=== PATIENT | female | born 1980 | race Hispanic/Latino ===

== ENCOUNTER 2019-12-28 23:25 | Emergency (ER) | payer SELFPAY ==
[~2019-12-28] VITALS: Ht 167.6 cm; Wt 73.9 kg
[2019-12-28 23:44] LABS: BASOPHILS % 0.5 % (0.0-1.0); EOSINOPHILS # (AUTO) 0.1 (0.0-0.4); EOSINOPHILS % 1.1 % (0.0-6.0); HEMATOCRIT 40.3 % (34.2-44.1); HEMOGLOBIN 13.2 g/dL (12.0-16.0); LYMPHOCYTES # (AUTO) 2.4 (1.0-3.2); LYMPHOCYTES % 37.1 % (18.0-39.1); MEAN CORPUSCULAR HEMOGLOBIN 29.1 pg (28-32); MEAN CORPUSCULAR HGB CONC 32.8 g/dL (31-35); MEAN CORPUSCULAR VOLUME 88.8 fL (81-99); MONOCYTES # (AUTO) 0.5 (0.2-0.8); MONOCYTES % 7.7 % (4.4-11.3); NEUTROPHILS # (AUTO) 3.4 (2.1-6.9); NEUTROPHILS % 53.4 % (38.7-80.0); PLATELET COUNT 163 x10e3/uL (140-360); RED BLOOD COUNT 4.54 x10e6/uL (3.6-5.1); RED CELL DISTRIBUTION WIDTH 14.1 % (11.7-14.4)
--- NOTE | 2019-12-28 23:44 | Emergency Department Note ---
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 Executive Required: No Onset (how long ago): week(s) (2) Location: SKIN Quality: BRUISING, PETICHIAE Radiation: Reports non-radiation Severity: mild Onset quality: gradual Duration (how long): week(s) (2) Timing of current episode: constant Progression: unchanged Chronicity: recurrent Context: Denies recent illness, Denies recent surgery, Denies trauma/injury Relieving factors: none Exacerbating factors: none Associated symptoms: Reports other (HAD A HEADACHE BUT NO HEADACHE AT THIS TIME) Treatments prior to arrival: none Past Medical/Family History Physician Review I have reviewed the patient's past medical and family history. Any updates have been documented here. Past Medical History Recent Fever: No Clinical Suspicion of Infectio: No New/Unexplained Change in Ment: No Past Medical History: Hypertension, Hypothyroidism, Anxiety Other Medical History: bulging disks stress test 2017- negative a year ago GESTATIONAL THROMBOCYTOPENIA B12 DEFICIENCY Other Surgery: D&C RT FOOT SX Social History Smoking Cessation: Never Smoker Alcohol Use: None Any Illegal Drug Use: No Family History Family history of heart diseas: No Other Last Tetanus: unk Review of Systems Review of Systems Constitutional: Reports no symptoms EENTM: Reports no symptoms Cardiovascular: Reports no symptoms Respiratory: Reports no symptoms Gastrointestinal: Reports no symptoms Genitourinary: Reports no symptoms Musculoskeletal: Reports no symptoms Integumentary: Reports as per HPI Neurological: Reports no symptoms Psychological: Reports no symptoms Endocrine: Reports no symptoms Hematological/Lymphatic: Reports no symptoms Physical Exam Related Data Allergies: Coded Allergies: amlodipine (Verified Allergy, Intermediate, HIVES/RASH, 12/28/19) Triage Vital Signs Vital Signs Date Time Temp Pulse Resp B/P (MAP) Pulse Ox O2 Delivery O2 Flow Rate FiO2 12/28/19 23:31 98.5 69 18 143/90 100 Room Air Vital signs reviewed: Yes Physical Exam CONSTITUTIONAL Constitutional: Present well-developed, Present well-nourished; Absent distressed HENT HENT: Present normocephalic, Present atraumatic, Present oropharynx clear/moist, Present nose normal HENT L/R: Present left ext ear normal, Present right ext ear normal EYES Eyes: Reports PERRL, Reports conjunctivae normal NECK Neck: Present ROM normal PULMONARY Pulmonary: Present effort normal, Present breath sounds normal CARDIOVASCULAR Cardiovascular: Present regular rhythm, Present heart sounds normal, Present capillary refill normal, Present normal rate GASTROINTESTINAL Abdominal: Present soft, Present nontender, Present bowel sounds normal GENITOURINARY Genitourinary: Present exam deferred SKIN PT HAS A BRUISE TO RIGHT FOREARM, A BRUISE TO THIGH, A FEW SPARSE TINY RED SPOTS THAT MAY BE PETECHIAE. MUSCULOSKELETAL Musculoskeletal: Present ROM normal NEUROLOGICAL Neurological: Present alert, Present oriented x 3, Present no gross motor or sensory deficits PSYCHOLOGICAL Psychological: Present mood/affect normal, Present judgement normal Results Laboratory Laboratory Laboratory Tests Test 12/28/19 23:37 12/28/19 23:35 White Blood Count 6.34 x10e3/uL (4.8-10.8) Red Blood Count 4.54 x10e6/uL (3.6-5.1) Hemoglobin 13.2 g/dL (12.0-16.0) Hematocrit 40.3 % (34.2-44.1) Mean Corpuscular Volume 88.8 fL (81-99) Mean Corpuscular Hemoglobin 29.1 pg (28-32) Mean Corpuscular Hemoglobin Concent 32.8 g/dL (31-35) Red Cell Distribution Width 14.1 % (11.7-14.4) Platelet Count 163 x10e3/uL (140-360) Neutrophils (%) (Auto) 53.4 % (38.7-80.0) Lymphocytes (%) (Auto) 37.1 % (18.0-39.1) Monocytes (%) (Auto) 7.7 % (4.4-11.3) Eosinophils (%) (Auto) 1.1 % (0.0-6.0) Basophils (%) (Auto) 0.5 % (0.0-1.0) Neutrophils # (Auto) 3.4 (2.1-6.9) Lymphocytes # (Auto) 2.4 (1.0-3.2) Monocytes # (Auto) 0.5 (0.2-0.8) Eosinophils # (Auto) 0.1 (0.0-0.4) Basophils # (Auto) 0.0 (0.0-0.1) Absolute Immature Granulocyte (auto 0.01 x10e3/uL (0-0.1) Sodium Level 141 mmol/L (136-145) Potassium Level 3.5 mmol/L (3.5-5.1) Chloride Level 106 mmol/L (98-107) Carbon Dioxide Level 25 mmol/L (22-29) Anion Gap 13.5 mmol/L (8-16) Blood Urea Nitrogen 11 mg/dL (7-26) Creatinine 0.69 mg/dL (0.57-1.11) Estimat Glomerular Filtration Rate > 60 ML/MIN (60-) BUN/Creatinine Ratio 16 (6-25) Glucose Level 86 mg/dL (74-118) Calcium Level 9.3 mg/dL (8.4-10.2) Urine Color Yellow (YELLOW) Urine Clarity Clear (CLEAR) Urine pH 6 (5 - 7) Urine Specific [place] >=1.030 (1.010-1.025) Urine Protein Negative (NEGATIVE) Urine Glucose (UA) Negative (NEGATIVE) Urine Ketones Negative (NEGATIVE) Urine Blood Negative (NEGATIVE) Urine Nitrite Negative (NEGATIVE) Urine Bilirubin Negative (NEGATIVE) Urine Urobilinogen 0.2 mg/dL (0.2 - 1) Urine Leukocyte Esterase Negative (NEGATIVE) Urine RBC 0-5 /HPF (0-5) Urine WBC 0-5 /HPF (0-5) Urine Epithelial Cells Few /LPF (NONE) Urine Bacteria Many /HPF (NONE) Urine Test Negative (NEGATIVE) Lab results reviewed: Yes Assessment & Plan Medical Decision Making MDM PT WITH BRUISING CBC,BMP, UA ORDERED TO EVAL FOR HEMATURIA, THROMBOCYTOPENIA, ANEMIA, ELECTROLYTE ABNORMALITY PT IS DOES NOT HAVE THROMBOCYTOPENIA AT THIS TIME Assessment & Plan Final Impression: (1) Multiple bruises Depart Disposition: HOME, SELF-CARE Last Vital Signs Date Time Temp Pulse Resp B/P (MAP) Pulse Ox O2 Delivery O2 Flow Rate FiO2 12/28/19 23:31 98.5 69 18 143/90 100 Room Air CLOVIS WILLS MD Dec 28, 2019 23:44
[2019-12-28 23:49] LABS: CLARITY,URINE CLEAR (CLEAR); COLOR,URINE YELLOW (YELLOW); KETONES,URINE NEGATIVE (NEGATIVE); LEUKOCYTE ESTERASE ,URINE NEGATIVE (NEGATIVE); NITRITE,URINE NEGATIVE (NEGATIVE); PROTEIN,URINE DIPSTICK NEGATIVE (NEGATIVE)
[2019-12-28 23:50] LABS: BILIRUBIN,URINE NEGATIVE (NEGATIVE); PREGNANCY TEST, URINE NEGATIVE (NEGATIVE); URINE UROBILINOGEN 0.2 mg/dL (0.2 - 1)
[2019-12-29 00:01] LABS: BACTERIA,URINE MANY /HPF; EPITHELIAL CELLS,URINE FEW /LPF; RBC,URINE 0-5 /HPF (0-5); WBC,URINE (MAN) 0-5 /HPF (0-5)
--- OUTSIDE RECORDS SUMMARY | 2019-12-29 00:01 | XMS REPORT | Clinical Summary ---
Author Author [facility] Address Unknown Phone Unavailable Care Team Providers Care Bd Special Education Teacher Name Role Phone Hansa Tian PCP Allergies Comments Active Allergy Reactions Severity Noted Date Amlodipine Hives Low 07/20/2018 Medications End Date Status Medication Sig Dispensed Refills Start Date Active olmesartan (BENICAR) 5 MG Take 10 mg by 0 tablet mouth daily. Active omeprazole (PriLOSEC) 20 Take 20 mg by 0 MG capsule mouth daily. Active levothyroxine (SYNTHROID) Take 25 mcg 0 25 mcg tablet by mouth daily. 01/15/2020 Active methocarbamoL Take 1 tablet 120 tablet 0 (Robaxin-750) 750 MG (750 mg 0 tablet total) by mouth 4 (four) times a day for 30 days. Active famotidine (PEPCID) 40 MG Take 40 mg by 0 tablet mouth daily. 12/31/2019 Active acetaminophen-codeine Take 1-2 15 tablet 0 11/28 (TYLENOL WITH CODEINE #3) tablets by 0 300-30 mg per mouth every 6 tabletIndications: acute (six) hours pain as needed for moderate pain for up to 10 days .acute pain. Active TiZANidine (Zanaflex) 4 Take 1 30 capsule 0 MG capsule capsule (4 mg 0 total) by mouth 3 (three) times a day as needed for muscle spasms. 01/01/2019 Discontinued lisinopril Take 10 mg by 0 (PRINIVIL,ZESTRIL) 10 mg mouth daily. tablet 01/01/2019 Discontinued hydrOXYzine (ATARAX) 25 Take 25 mg by 0 MG tablet mouth 2 (two) times a day as needed for itching. 01/01/2019 Discontinued orphenadrine (NORFLEX) Take 100 mg 0 100 mg 12 hr tablet by mouth 2 (two) times a day. 08/29/2019 Discontinued (Discontinued b y another clinician) linaCLOtide (LINZESS) 145 Take 72 mcg 0 mcg capsule by mouth daily before breakfast. 01/01/2019 Discontinued fluticasone Inhale 2 0 propion-salmeterol puffs 2 (two) (ADVAIR) 100-50 mcg/dose times a day. DISKUS 01/01/2019 Discontinued azithromycin (ZITHROMAX) Take 250 mg 0 250 MG tablet by mouth daily. Take 2 tablets the first day, then 1 tablet daily for 4 days. 01/05/2019 Discontinued cyclobenzaprine Take 10 mg by 0 (FLEXERIL) 10 mg tablet mouth 3 (three) times a day as needed for muscle spasms. 01/01/2019 Discontinued fluticasone propionate 2 sprays by 0 (FLONASE) 50 Each Nare mcg/actuation nasal spray route daily. 01/03/2019 dicyclomine (BENTYL) 20 Take 1 tablet 20 tablet 0 mg tablet (20 mg total) 9 by mouth 2 (two) times a day as needed (abdominal pain) for up to 10 days. 01/01/2019 Discontinued lidocaine HCl (lidocaine) 15 mL by 60 mL 0 2 % solution mucous 9 membrane route 2 (two) times a day as needed (stomach pain) for up to 3 days. Swallow. 08/29/2019 Discontinued (Discontinued cyndie modi another clinician) sucralfate (CARAFATE) 1 Take 1 g by 0 gram tablet mouth 2 (two) times a day. Give at noon and 6pm 08/29/2019 Discontinued (Discontinued b y another clinician) metroNIDAZOLE (FLAGYL) Take 500 mg 0 500 MG tablet by mouth 2 (two) times a day. 08/29/2019 Discontinued (Discontinued b y another clinician) levocetirizine (XYZAL) 5 Take 5 mg by 0 MG tablet mouth daily. 01/13/2019 acetaminophen-codeine Take 1-2 40 tablet 0 (TYLENOL WITH CODEINE #3) tablets by 9 300-30 mg per mouth every 4 tabletIndications: acute (four) hours pain, cluster headache as needed for moderate pain for up to 10 days .Acute Pain, cluster headache. 01/12/2019 ciprofloxacin HCl (CIPRO) Take 1 tablet 16 tablet 0 500 MG tablet (500 mg 9 total) by mouth 2 (two) times a day for 8 days. 02/03/2019 levothyroxine (SYNTHROID) Take 1 tablet 30 tablet 0 25 mcg tablet (25 mcg 9 total) by mouth daily for 30 days. 02/02/2019 topiramate (TOPAMAX) 25 Take 1 tablet 60 tablet 0 MG tablet (25 mg total) 9 by mouth 2 (two) times a day for 30 days. 01/10/2019 diazePAM (VALIUM) 5 MG Take 1 tablet 15 tablet 0 1 tablet (5 mg total) 9 by mouth every 8 (eight) hours as needed for muscle spasms for up to 5 days. 08/29/2019 Discontinued (Discontinued b y another clinician) hydrOXYzine (VISTARIL) 25 Take 25 mg by 0 MG capsule mouth 3 (three) times a day as needed for itching. 03/13/2019 famotidine (PEPCID) 20 MG Take 1 tablet 28 tablet 0 tablet (20 mg total) 9 by mouth 2 (two) times a day for 14 days. 08/20/2019 nitrofurantoin, Take 1 10 capsule 0 macrocrystal-monohydrate, capsule (100 0 (MACROBID) 100 MG capsule mg total) by mouth 2 (two) times a day for 5 days. 08/19/2019 nitrofurantoin, Take 1 10 capsule 0 macrocrystal-monohydrate, capsule (100 0 (MACROBID) 100 MG capsule mg total) by mouth 2 (two) times a day for 2 days. 11/02/2019 Discontinued (Reorder) prochlorperazine Take 1 tablet 10 tablet 0 02 (COMPAZINE) 10 MG tablet (10 mg total) 0 by mouth 2 (two) times a day as needed for nausea or vomiting (headache) for up to 30 days. 12/02/2019 prochlorperazine Take 1 tablet 10 tablet 0 02 (COMPAZINE) 10 MG tablet (10 mg total) 0 by mouth 2 (two) times a day as needed for nausea or vomiting (headache) for up to 30 days. 12/08/2019 cetirizine (ZyrTEC) 10 MG Take 1 tablet 30 tablet 0 tablet (10 mg total) 0 by mouth daily for 30 days. 11/18/2019 amoxicillin-pot Take 1 tablet 20 tablet 0 11/08/19 2 clavulanate (AUGMENTIN) by mouth 0 875-125 mg per tablet every 12 (twelve) hours for 10 days. 12/13/2019 acetaminophen-codeine Take 1-2 15 tablet 0 11/27 (TYLENOL WITH CODEINE #3) tablets by 0 300-30 mg per mouth every 6 tabletIndications: acute (six) hours pain as needed for severe pain for up to 5 days .acute pain. 12/21/2019 Discontinued lidocaine (Lidoderm) 5 % Place 1 patch 30 patch 0 on the skin 0 daily for 30 days. 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 Episodic cluster headache, not intractable 9 Cervical spinal stenosis 01/03/2019 Left facial numbness 01/02/2019 Hypertension 01/02/2019 Anxiety 01/02/2019 Resolved Problems Problem Noted Date Resolved Date Weakness of left upper extremity 01/02/201901/03 Numbness and tingling of left upper and lower extremity 01/03/2019 Weakness of left lower extremity 01/01/201901/03 Encounters Care Team Description Date Type Specialty Lizette Causey MD Chest wall pain (Primary Dx) 12/25/2019 Emergency Emergency Medicine 12/25/2019 Travel Laura Peralta, DO Chest pain, unspecified type (Primary Dx ) 12/21/2019 Emergency Emergency Medicine 12/21/2019 Travel Naveed Rojo, DO Paresthesia (Primary Dx); Anxiety reaction 12/16/2019 Emergency Emergency Medicine 12/16/2019 Travel Heron Arthur MD Paresthesia (Primary Dx); Trigger point of right shoulder region; Radiculopathy, unspecified spinal region 12/07/2019 Emergency Emergency Medicine - 12/08/2019 12/07/2019 Travel Lizette Causey MD Vaginal discharge (Primary Dx) 11/11/2019 Emergency Emergency Medicine Heron Harrison MD Sinusitis, unspecified chronicity, unspe cified location (Primary Dx); Educated About Covid-19 Virus Infection 11/08/2019 Emergency Emergency Medicine Heron Arthur MD Nonintractable headache, unspecified chr onicity pattern, unspecified headache type (Primary Dx) 11/02/2019 Emergency Emergency Medicine 11/02/2019 Travel Len Lombardo MD Episodic lightheadedness (Primary Dx) 10/26/2019 Emergency Emergency Medicine 10/24/2019 Travel Heron Harrison MD Contact with and (suspected) exposure to other viral communicable diseases (Primary Dx) 10/24/2019 Transcribe Lab Orders 10/17/2019 Travel Brian Jean Baptiste MD Contact with and (suspected) exposure to other viral communicable diseases (Primary Dx) 10/17/2019 Transcribe Lab Orders Rosalind Garrett RN 09/21/2019 Telephone Emergency Medicine Heron Harrison MD Exposure to Covid-19 Virus (Primary Dx) 09/19/2019 Emergency Emergency Medicine Abel Wilde MD Neoplasm of uncertain behavior of left a drenal gland (Primary Dx); Hypothyroidism, unspecified type 08/29/2019 Office Visit Endocrinology 08/29/2019 Travel 08/17/2019 Travel Tarik Rivera MD Right inguinal pain (Primary Dx); Cystitis 08/16/2019 Emergency Emergency Medicine - 08/17/2019 Len Lombardo MD Acute cystitis without hematuria (Primar y Dx) 08/15/2019 Emergency Emergency Medicine 08/15/2019 Travel Tarik Rivera MD Acute recurrent maxillary sinusitis (Bobbi hansa Dx) 08/02/2019 Emergency Emergency Medicine Saurabh Nunez MD Chronic sinusitis, unspecified location (Primary Dx); Burning sensation of nose 07/25/2019 Emergency Emergency Medicine Antonio Castelan MD Other chest pain (Primary Dx) 05/12/2019 Emergency Emergency Medicine Saurabh Nunez MD Urticaria (Primary Dx) 02/27/2019 Emergency Emergency Medicine 01/05/2019 Travel Timothy Richards MD Cervical radiculopathy (Primary Dx) 01/04/2019 Emergency Emergency Medicine - 01/05/2019 Heron Harrison MD Hewitt, Hansa Wyatt MD Weakness of left lower extremity (Primar y Dx); Left sided numbness 01/01/2019 [facility] Internal Ca dicine - Encounter 01/03/2019 Timothy Richards MD Lumbar strain, initial encounter (Primar y Dx) 12/31/2018 Emergency Emergency Medicine after 12/28/2018 Immunizations Name Administration Dates Next Due FLUCELVAX QUAD PF 01/03/2019 () Tdap 07/05/2018 Surgical History Surgery Date Site/Laterality Comments FOOT SURGERY 03/29/2015 - Right 03/28/2016 DILATION AND CURETTAGE, DIAGNOSTIC / THERAPEUTIC FOOT SURGERY 12/28/2015 - 01/27/2016 ECTOPIC SURGERY Medical History Medical History Date Comments Hypertension Anxiety Stomach ulcer Disease of thyroid gland Adrenal nodule (HCC) Spinal stenosis Family History Medical History Relation Name Comments Osteochondroma Brother Hypertension Father Diabetes Mother Hypertension Mother Testicular cancer Mother Thyroid disease Mother Relation Name Status Comments Brother Father Mother Social History Date Tobacco Use Types Packs/Day Years Used Former Smoker Smokeless Tobacco: Never Used Comments: quit 6 months ago Drinks/Week oz/Week Comments Alcohol Use No Sex Assigned at Date Recorded Not on file Date Recorded COVID-19 Exposure Response 12/25/2019 7:39 PM CDT In the last month, have you been in contact with No / Unsure someone who was confirmed or suspected to have Coronavirus / COVID-19? Last Filed Vital Signs Reading Time Taken Comments Vital Sign 115/76 12/25/2019 8:45 PM CDT Blood Pressure 58 12/25/2019 8:45 PM CDT Pulse 36.9 C (98.5 F) 12/25/2019 8:45 PM CDT Temperature 18 12/25/2019 8:45 PM CDT Respiratory Rate 98% 12/25/2019 8:45 PM CDT Oxygen Saturation - - Inhaled Oxygen Concentration 75.8 kg (167 lb) 12/21/2019 7:01 PM CDT Weight 167.6 cm (5' 6") 12/25/2019 7:12 PM CDT Height 26.95 12/21/2019 7:01 PM CDT Body Mass Index Plan of Treatment Care Team Description [place] [id number] [address] [phone] 02/28/2020 Office Visit Endocrinology Health Maintenance Due Date Last Done Comments CERVICAL CANCER SCREENING 01/24/2001 INFLUENZA VACCINE 10/28/2019 Implants Device Identifier Shelf Expiration Date Model / Serial / L ot Implanted Type Area Manufactur er Metal Plate Description:metal plate in right foot Procedures Comments Procedure Name Priority Date/Time Associated Diag nosis TROPONIN Timed 12/21/2019 10:[address] ANGIOGRAM CHEST STAT 12/21/2019 ABDOMEN PELVIS W AND OR 8:56 PM CDT WITHOUT CONTRAST URINALYSIS SCREEN AND Routine 12/21/2019 MICROSCOPY, WITH REFLEX 7:38 PM CDT TO CULTURE HCG QUALITATIVE, URINE Routine 12/21/2019 SCREEN 7:38 PM CDT URINE CULTURE Routine 12/21/2019 7:38 PM CDT SMEAR REVIEW STAT 12/21/2019 7:23 PM CDT MAGNESIUM LEVEL STAT 12/21/2019 7:23 PM CDT PHOSPHORUS LEVEL STAT 12/21/2019 7:23 PM CDT ESTIMATED GFR STAT 12/21/2019 7:23 PM CDT B NATRIURETIC PEPTIDE STAT 12/21/2019 7:23 PM CDT TROPONIN STAT 12/21/2019 7:23 PM CDT COMPREHENSIVE METABOLIC STAT 12/21/2019 PANEL 7:23 PM CDT HC COMPLETE BLD COUNT STAT 12/21/2019 W/AUTO DIFF 7:23 PM CDT ECG ED PRELIMINARY Routine 12/21/2019 INTERPRETATION 7:16 PM CDT ECG 12-LEAD STAT 12/21/2019 7:00 PM CDT ESTIMATED GFR STAT 12/16/2019 1:03 AM CDT T4, FREE STAT 12/16/2019 1:03 AM CDT THYROID STIMULATING STAT 12/16/2019 HORMONE 1:03 AM CDT BASIC METABOLIC PANEL STAT 12/16/2019 1:03 AM CDT HC COMPLETE BLD COUNT STAT 12/16/2019 W/AUTO DIFF 1:03 AM CDT MRI LUMBAR SPINE WO STAT 12/08/2019 CONTRAST 12:44 AM CDT MRI THORACIC SPINE WO STAT 12/08/2019 CONTRAST 12:37 AM CDT MRI CERVICAL SPINE WO STAT 12/08/2019 CONTRAST 12:20 AM CDT MRI BRAIN WO CONTRAST STAT 12/08/2019 12:20 AM CDT ESTIMATED GFR STAT 12/07/2019 11:28 PM CDT PHOSPHORUS LEVEL STAT 12/07/2019 11:28 PM CDT COMPREHENSIVE METABOLIC STAT 12/07/2019 PANEL 11:28 PM CDT MAGNESIUM LEVEL STAT 12/07/2019 11:28 PM CDT HC COMPLETE BLD COUNT STAT 12/07/2019 W/AUTO DIFF 11:28 PM CDT IONIZED CALCIUM STAT 12/07/2019 11:28 PM CDT CHLAMYDIA GONORRHOEAE AND STAT 11/11/2019 TRICHOMONAS PANEL 6:59 PM CDT WET PREP STAT 11/11/2019 6:59 PM CDT URINE CULTURE STAT 11/11/2019 6:34 PM CDT HCG QUALITATIVE, URINE STAT 11/11/2019 SCREEN 6:12 PM CDT URINALYSIS SCREEN AND STAT 11/11/2019 MICROSCOPY, WITH REFLEX 6:12 PM CDT TO CULTURE COVID-19 QUALITATIVE PCR STAT 11/08/2019 9:[address] HEAD WO CONTRAST STAT 11/02/2019 5:37 AM CDT ESTIMATED GFR STAT 11/02/2019 5:09 AM CDT LACTIC ACID LEVEL, SEPSIS STAT 11/02/2019 - NOW AND REPEAT 2X EVERY 5:09 AM CDT 3 HOURS COMPREHENSIVE METABOLIC STAT 11/02/2019 PANEL 5:09 AM CDT HC COMPLETE BLD COUNT STAT 11/02/2019 W/AUTO DIFF 5:09 AM CDT ECG ED PRELIMINARY Routine 10/26/2019 INTERPRETATION 3:44 AM CDT ESTIMATED GFR STAT 10/26/2019 1:50 AM CDT HCG QUALITATIVE, SERUM STAT 10/26/2019 SCREEN 1:50 AM CDT B NATRIURETIC PEPTIDE STAT 10/26/2019 1:50 AM CDT TROPONIN STAT 10/26/2019 1:50 AM CDT CREATINE KINASE, TOTAL STAT 10/26/2019 (CPK) 1:50 AM CDT COMPREHENSIVE METABOLIC STAT 10/26/2019 PANEL 1:50 AM CDT HC COMPLETE BLD COUNT STAT 10/26/2019 W/AUTO DIFF 1:50 AM CDT XR CHEST 1 VW PORTABLE STAT 10/26/2019 1:41 AM CDT ECG 12-LEAD STAT 10/26/2019 1:24 AM CDT COVID-19 QUALITATIVE PCR Routine 10/24/[address] with and 9:35 AM CDT (suspected) exposure to other viral communicable diseases COVID-19 QUALITATIVE PCR Routine 10/17/[address] with and 9:33 AM CDT (suspected) exposure to other viral communicable diseases COVID-19 QUALITATIVE PCR STAT 09/19/2019 11:[address] RENAL STONE PROTOCOL STAT 08/17/2019 12:18 AM CDT URINE CULTURE STAT 08/15/2019 12:22 AM CDT HCG QUALITATIVE, URINE STAT 08/15/2019 SCREEN 12:08 AM CDT URINALYSIS SCREEN AND STAT 08/15/2019 MICROSCOPY, WITH REFLEX 12:08 [address] TO C[address] HEAD WO CONTRAST STAT 08/02/2019 2:52 PM CDT XR CHEST 2 VW STAT 05/12/2019 1:57 PM MACHINE ROPE MAKER ECG ED PRELIMINARY Routine 05/12/2019 INTERPRETATION 12:34 PM MACHINE ROPE MAKER ESTIMATED GFR STAT 05/12/2019 12:04 PM MACHINE ROPE MAKER B NATRIURETIC PEPTIDE STAT 05/12/2019 12:04 PM MACHINE ROPE MAKER TROPONIN STAT 05/12/2019 12:04 PM MACHINE ROPE MAKER COMPREHENSIVE METABOLIC STAT 05/12/2019 PANEL 12:04 PM MACHINE ROPE MAKER HC COMPLETE BLD COUNT STAT 05/12/2019 W/AUTO DIFF 12:04 PM MACHINE ROPE MAKER ECG 12-LEAD STAT 05/12/2019 12:02 PM MACHINE ROPE MAKER URINALYSIS SCREEN AND STAT 01/05/2019 MICROSCOPY, WITH REFLEX 12:08 AM CDT TO CULTURE URINE CULTURE STAT 01/05/2019 12:08 AM CDT MAGNESIUM LEVEL STAT 01/05/2019 12:02 AM CDT ESTIMATED GFR STAT 01/05/2019 12:02 AM CDT TROPONIN STAT 01/05/2019 12:02 AM CDT HCG QUALITATIVE, SERUM STAT 01/05/2019 SCREEN 12:02 AM CDT COMPREHENSIVE METABOLIC STAT 01/05/2019 PANEL 12:02 AM CDT HC COMPLETE BLD COUNT STAT 01/05/2019 W/AUTO DIFF 12:02 AM CDT ECG 12-LEAD STAT 01/04/2019 11:56 PM CDT ECG ED PRELIMINARY Routine 01/04/2019 INTERPRETATION 11:54 PM CDT LIPID PANEL STAT 01/02/2019 12:00 PM CDT URINE DRUGS OF ABUSE Routine 01/02/2019 SCREEN 9:00 AM CDT TROPONIN, I-STAT Timed 01/02/2019 2:03 AM CDT TROPONIN Timed 01/02/2019 2:03 AM CDT TROPONIN Timed 01/01/2019 10:04 PM CDT MRI CERVICAL SPINE WO STAT 01/01/2019 CONTRAST 7:35 PM CDT MRI BRAIN WO CONTRAST STAT 01/01/2019 7:17 PM CDT GRAM STAIN STAT 01/01/2019 6:59 PM CDT URINE CULTURE STAT 01/01/2019 6:59 PM CDT URINALYSIS SCREEN AND STAT 01/01/2019 MICROSCOPY, WITH REFLEX 6:16 PM CDT TO CULTURE ECG ED PRELIMINARY Routine 01/01/2019 INTERPRETATION 6:04 PM CDT [facility] CRITICAL CARE, E/M Routine 01/01/2019 30-74 MINUTES 6:[address] ANGIOGRAM NECK W WO STAT 01/01/2019 CONTRAST 5:[address] ANGIOGRAM HEAD W WO STAT 01/01/2019 CONTRAST 5:52 PM CDT POC GLUCOSE Routine 01/01/2019 5:45 PM CDT ECG 12-LEAD STAT 01/01/2019 5:[address] STROKE BRAIN WO STAT 01/01/2019 CONTRAST 5:27 PM CDT CREATINE KINASE, TOTAL STAT 01/01/2019 (CPK) 5:26 PM CDT ESTIMATED GFR STAT 01/01/2019 5:26 PM CDT HCG QUALITATIVE, SERUM STAT 01/01/2019 SCREEN 5:26 PM CDT B NATRIURETIC PEPTIDE STAT 01/01/2019 5:26 PM CDT TROPONIN STAT 01/01/2019 5:26 PM CDT HEPATIC FUNCTION PANEL STAT 01/01/2019 5:26 PM CDT BASIC METABOLIC PANEL STAT 01/01/2019 5:26 PM CDT TYPE AND SCREEN Routine 01/01/2019 5:26 PM CDT PARTIAL THROMBOPLASTIN STAT 01/01/2019 TIME (PTT) 5:26 PM CDT PROTHROMBIN TIME WITH INR STAT 01/01/2019 5:26 PM CDT HC COMPLETE BLD COUNT STAT 01/01/2019 W/AUTO DIFF 5:26 PM CDT URINALYSIS SCREEN AND Routine 12/31/2018 MICROSCOPY, WITH REFLEX 9:57 PM CDT TO CULTURE HCG QUALITATIVE, URINE Routine 12/31/2018 SCREEN 9:57 PM CDT URINE CULTURE Routine 12/31/2018 9:57 PM CDT after 12/28/2018 Results * Troponin (12/21/2019 10:16 PM CDT) Only the most recent of 8 results within the time period is included. Troponin <0.006 0.000 - 0.040 ng/mL [place] Comment: [facility] In patients suspected of [facility] having a myocardial HOSPITAL infarction, along with all other appropriate clinical measures and actions including ECG and other diagnostics as appropriate, measure Ultra TnI at 0 hrs and at 3 hrs. Myocardial infarction VERY LIKELY The 0 hr TnI level is > 0.10 ng/mL Myocardial infarction LIKELY The 0 hr TnI level is > 0.04 ng/mL and 3 hr level is increased or decreased by at least 0.020 ng/mL Myocardial infarction VERY UNLIKELY Both the 0 hr and 3 hr TnI levels <= 0.04 ng/mL(within normal limits) OR 0 hr is > 0.04 ng/mL and 3 hr is increased OR decreased by less than 0.020 ng/mL Specimen Blood Performing Organization Address City/State/ZIP Code P patricia Number [facility] DEPARTMENT OF [address] [place] [address] PATHOLOGY AND GENOMIC MEDICINE JOHN LIMA [facility] [address] * CT Angiogram Chest W Contrast Abdomen W Contrast Pelvis W Contrast (12/21/2019 8:56 PM CDT) Specimen Narrative Performed At EXAMINATION: CT ANGIOGRAM CHEST ABDOMEN PELVIS W AN D OR WITHOUT CONTRAST HM RADIANT CLINICAL HISTORY: cp radiate from [facility] k. r o dissection TECHNIQUE: Multiple CT angiographic i mages of the chest, abdomen, and pelvis were obtained during intravenous admini stration of contrast. Multiple computerized reformatted images as well as 3-D volume rendered images were also obtained. Precontrast images of the chest, abdomen, and pelvi s were obtained. CT imaging was performed with iterative reconstruction technique s and/or automated exposure control to reduce radiation dose. COMPARISON: CT abdomen/pelvis 08/16/19 IMPRESSION: Chest: *The heart is normal in size. No signif icant pericardial effusion is seen. The main pulmonary trunk is within normal l imits in caliber. No central pulmonary embolus is identified. *No thoracic lymphadenopathy is seen. *Mild dependent atelectasis is seen in both lower lobes. No suspicious pulmonary nodule or consolidation is identified. The central airways are patent. *No pleural effusion or pneumothorax is seen. Abdomen: * A few scattered hypodensities in the liver measure up to 1.4 cm, grossly unchanged and suggestive of cysts. *The gallbladder, spleen, pancreas, and right adrenal gland are unremarkable. *A 1.1 cm nodule is seen in the left ad renal gland, consistent with an adenoma. *The kidneys are normal in size. No nep hrolithiasis or hydronephrosis is identified. No suspicious renal mass is seen. *No mesenteric or retroperitoneal lymph adenopathy is seen. *No significant free fluid or air is id entified. *No bowel wall thickening or obstructio n is seen. The appendix is normal. Pelvis: * The urinary bladder appears normal. *A left adnexal structure measures up t o 1.8 cm, suggestive of an ovarian cyst. The uterus and right adnexa are grossly unremarkable. Musculoskeletal: *No acute or aggressive osseous lesion is seen. CTA: No evidence of aortic aneurysm or disse ction is seen. Aortic measurements as follows: Mid asc ending aorta 3.4 cm, mid aortic arch 2.4 cm, mid descending aorta 2.3 cm, at waylon iac artery 2.2 cm, at bifurcation 1.5 cm. There is common origin of the innominat e artery and left common carotid artery. The great vessels of the neck are paten t. The celiac artery and its distal branch es are patent. The SMA and its distal branches are patent. A replaced right h epatic artery from the SMA is noted. There are 2 right renal arteries which are patent. A single left renal artery is patent. The FROY and its distal branches are pat ent. Bilateral iliac and partially visualize d femoral arteries are widely patent. SUMMARY: 1.No evidence of aortic aneurysm or dis section. 2.No acute intrathoracic, intra-abdomin al, or pelvic abnormality. [id number] Procedure Note [facility], Radiology Results Incoming - 12/21/2019 9:13 PM CDT EXAMINATION: CT ANGIOGRAM CHEST ABDOMEN PELVIS W AND OR WITHOUT CONTRAST CLINICAL HISTORY: cp radiate from back. r o dissection TECHNIQUE: Multiple CT angiographic images of the chest, abdomen, and pelvis were obtained during intravenous administration of contrast. Multiple computerized reformatted images as well as 3-D volume rendered images were also obtained. Precontrast images of the chest, abdomen, and pelvis were obtained. CT imaging was performed with iterative reconstruction techniques and/or automated exposure control to reduce radiation dose. COMPARISON: CT abdomen/pelvis 08/16/2019 IMPRESSION: Chest: *The heart is normal in size. No significant pericardial effusion is seen. The main pulmonary trunk is within normal limits in caliber. No central pulmonary embolus is identified. *No thoracic lymphadenopathy is seen. *Mild dependent atelectasis is seen in both lower lobes. No suspicious pulmonary nodule or consolidation is identified. The central airways are patent. *No pleural effusion or pneumothorax is seen. Abdomen: * A few scattered hypodensities in the liver measure up to 1.4 cm, grossly unchanged and suggestive of cysts. *The gallbladder, spleen, pancreas, and right adrenal gland are unremarkable. *A 1.1 cm nodule is seen in the left adrenal gland, consistent with an adenoma. *The kidneys are normal in size. No nephrolithiasis or hydronephrosis is identified. No suspicious renal mass is seen. *No mesenteric or retroperitoneal lymphadenopathy is seen. *No significant free fluid or air is identified. *No bowel wall thickening or obstruction is seen. The appendix is normal. Pelvis: * The urinary bladder appears normal. *A left adnexal structure measures up to 1.8 cm, suggestive of an ovarian cyst. The uterus and right adnexa are grossly unremarkable. Musculoskeletal: *No acute or aggressive osseous lesion is seen. CTA: No evidence of aortic aneurysm or dissection is seen. Aortic measurements as follows: Mid ascending aorta 3.4 cm, mid aortic arch 2.4 cm, mid descending aorta 2.3 cm, at celiac artery 2.2 cm, at bifurcation 1.5 cm. There is common origin of the innominate artery and left common carotid artery. The great vessels of the neck are patent. The celiac artery and its distal branches are patent. The SMA and its distal branches are patent. A replaced right hepatic artery from the SMA is noted. There are 2 right renal arteries which are patent. A single left renal artery is patent. The FROY and its distal branches are patent. Bilateral iliac and partially visualized femoral arteries are widely patent. SUMMARY: 1.No evidence of aortic aneurysm or diss ection. 2.No acute intrathoracic, intra-abdomina l, or pelvic abnormality. [facility]-[id number] Performing Organization Address City/State/ZIP Code P patricia Number [facility] [address] [place] [address] * Urinalysis screen and microscopy, with reflex to culture (12/21/2019 7:38 PM CDT) Only the most recent of 6 results within the time period is included. Specimen site Clean catch [facility] Color, UA Yellow [facility] Appearance, UA Clear [facility] Specific 1.017 1.001 - 1.035 [place] gravity, [facility] pH, UA 6.0 5.0 - 8.5 [facility] Protein, UA Negative Negative [facility] Glucose, UA Negative Negative [facility] Ketones, UA Negative Negative [facility] Bilirubin, UA Negative Negative [facility] Blood, UA Negative Negative [facility] Nitrite, UA Negative Negative [facility] Urobilinogen, Negative <2.0 [facility] Leukocyte Negative Negative [place] esterase, [facility] Epithelial Many /HPF [place] cells, [facility] WBC, UA 1 0 - 5 /HPF [facility] RBC, UA 1 0 - 5 /HPF [facility] Bacteria, UA None seen None seen [facility] Yeast, UA None seen [facility] Yeast with None seen [place] pseudohyphae, [facility] UA [facility] Specimen Urine Performing Organization Address City/[facility]/ZIP Code P patricia Number [facility] DEPARTMENT OF [address] [place] [address] PATHOLOGY AND GENOMIC MEDICINE [facility] [address] [place] [address] HOSPITAL * hCG qualitative, urine screen (12/21/2019 7:38 PM CDT) Only the most recent of 4 results within the time period is included. hCG Negative Negative [place] qualitative, Comment: [facility] urine The manufacturers stated [place] sensitivity of HcG test for HOSPITAL serum is >/= 10 mIU/ml and urine is >/= 20mIU/ml. Specimen Urine Performing Organization Address [facility] P patricia Number [facility] [address] [place] [address] PATHOLOGY AND GENOMIC MEDICINE [facility] [address] [place] [address] HOSPITAL * Urine culture (12/21/2019 7:38 PM CDT) Only the most recent of 6 results within the time period is included. Urine culture SEE COMMENTComment: [place] Bacteriuria screen negative. [facility] Specimen Urine Performing Organization Address City/[facility]/ZIP Code P patricia Number [facility] DEPARTMENT OF [address] [place] [address] PATHOLOGY AND GENOMIC MEDICINE [facility] [address] [place] [address] HOSPITAL * Smear review (12/21/2019 7:23 PM CDT) Platelet slide Agustin slt decr [place] review [facility] Enlarged 1+ [place] platelets [facility] Specimen Performing Organization Address City/[facility]/ZIP [facility] P patricia Number [facility] DEPARTMENT OF [address] [place] [address] PATHOLOGY AND GENOMIC MEDICINE [facility] [address] * Estimated GFR (12/21/2019 7:23 PM CDT) Only the most recent of 8 results within the time period is included. [facility] Estimated GFR >=90 mL/min/1.73 m2 [place] Comment: [facility] G1 >=90 Normal or high G2 60-89 Mildly decreased G3a 45-59 Mildly to moderately decreased G3b 30-44 Moderately to severely decreased G4 15-29 Severely decreased G5 <15 Kidney failure The eGFR was calculated using the Chronic Kidney Disease Epidemiology Collaboration (CKD-EPI) equation. Interpretation is based on recommendations of the National Kidney Foundation-Kidney Disease Outcomes Quality Initiative (NKF-KDOQI) published in 2014. Specimen Performing Organization Address City/State/ZIP Code P patricia Number [facility] DEPARTMENT OF [address] [place] [address] PATHOLOGY AND GENOMIC MEDICINE [facility] [address] * CBC with platelet and differential (12/21/2019 7:23 PM CDT) Only the most recent of 8 results within the time period is included. [facility] WBC 5.8 4.2 - 11.0 k/uL [facility] RBC 3.87 (L) 4.04 - 5.86 m/uL [facility] HGB 11.5 11.5 - 15.3 g/dL [facility] HCT 34.0 34.0 - 45.0 % [facility] MCV 87.9 80.0 - 98.0 fL [facility] MCH 29.7 27.0 - 34.0 pg [facility] MCHC 33.8 31.5 - 36.5 g/dL [facility] RDW - SD 43.8 37.0 - 51.0 fL [facility] MPV 13.3 (H) 7.4 - 10.4 fL [facility] Platelet count 121 (L) 150 - 400 k/uL [facility] Nucleated RBC 0.00 /100 WBC [facility] Neutrophils 58.7 36.0 - 66.0 % [facility] Lymphocytes 32.8 24.0 - 44.0 % [facility] Monocytes 5.5 0.0 - 6.0 % [facility] Eosinophils 2.2 0.0 - 6.0 % [facility] Basophils 0.3 0.0 - 1.2 % [facility] Immature 0.5 0.0 - 1.0 % [place] granulocytes [facility] Specimen Blood Performing Organization Address City/[facility] [place] [address] PATHOLOGY AND GENOMIC MEDICINE [address] * Phosphorus level (12/21/2019 7:23 PM CDT) Only the most recent of 2 results within the time period is included. Phosphorus 3.6 2.4 - 4.5 mg/dL [facility] Specimen Performing Organization Address City/[facility] [place] [address] PATHOLOGY AND GENOMIC MEDICINE [address] * B natriuretic peptide (12/21/2019 7:23 PM CDT) Only the most recent of 4 results within the time period is included. BNP 23 0 - 100 pg/mL [facility] Specimen Blood Performing Organization Address City/[facility] [place] [address] PATHOLOGY AND GENOMIC MEDICINE [address] * Magnesium level (12/21/2019 7:23 PM CDT) Only the most recent of 3 results within the time period is included. Magnesium 2.00 1.60 - 2.60 mg/dL [facility] Specimen Performing Organization Address City/[facility]/ZIP Code P patricia Number [facility] DEPARTMENT [place] [phone] PATHOLOGY AND GENOMIC MEDICINE [place] [address] [address] * Comprehensive metabolic panel (12/21/2019 7:23 PM CDT) Only the most recent of 6 results within the time period is included. Sodium 138 135 - 150 mEq/L [facility] Potassium 4.0 3.5 - 5.0 mEq/L [facility] Chloride 102 98 - 112 mEq/L [facility] CO2 26 24 - 31 mmol/L [facility] Anion gap 10@ANIO 7 - 15 mEq/L [facility] BUN 16 7 - 18 mg/dL [facility] Creatinine 0.50 0.50 - 0.90 mg/dL [facility] Glucose 88 65 - 100 mg/dL [facility] Calcium 9.5 8.3 - 10.2 mg/dL [facility] Protein 7.0 6.3 - 8.3 g/dL [facility] Albumin 3.8 3.5 - 5.0 g/dL [facility] A/G ratio 1.2 0.7 - 3.8 [facility] Alkaline 56 0 - 104 U/L [place] phosphatase [facility] AST 26 10 - 35 U/L [facility] ALT 11 5 - 50 U/L [facility] Total bilirubin 0.8 0.2 - 1.2 mg/dL [facility] Specimen Blood Performing Organization Address City/State/ZIP Code P patricia Number [facility] DEPARTMENT OF [facility] [place] [address] PATHOLOGY AND GENOMIC MEDICINE [address] * ECG ED Preliminary Interpretation - Not an Order (12/21/2019 7:16 PM CDT) Only the most recent of 5 results within the time period is included. Narrative Performed At Laura Peralta DO 2019 9:07 PM ECG ED Preliminary Interpretation - Not an Order Performed by: Laura Peralta DO Authorized by: Laura Peralta DO ECG reviewed by ED Physician in the abs ence of a casino investigator: yes Interpretation: Interpretation: normal Rate: ECG rate: 68 ECG rate assessment: normal Rhythm: Rhythm: sinus rhythm Ectopy: Ectopy: none QRS: QRS axis: Normal QRS intervals: Normal Conduction: Conduction: normal ST segments: ST segments: Normal T waves: T waves: normal * ECG 12 lead (12/21/2019 7:00 PM CDT) Only the most recent of 5 results within the time period is included. Ventricular 68 [facility] rate Atrial rate 68 [facility] OH interval 154 [facility] QRSD interval 88 [facility] QT interval 416 [facility] QTC interval 442 [facility] P axis 1 68 [facility] QRS axis 1 65 [facility] T wave axis 55 [facility] EKG impression Normal sinus rhythm with sinus [facility] MU SE arrhythmia-Normal ECG-In automated comparison with ECG of 26-OCT-2019 01:24,-No significant change was found- Specimen Narrative Performed At This result has an attachment that is n ot available. Performing Organization Address City/[facility]/ZIP Code P patricia Number [facility] [address] [place] [phone] * Thyroid stimulating hormone (12/16/2019 1:03 AM CDT) TSH 2.21 0.27 - 4.20 uIU/mL [facility] Specimen Blood Performing Organization Address City/State/ZIP Code P patricia Number [facility] [address] [place] [address] PATHOLOGY AND GENOMIC MEDICINE [address] [place] [address] [facility] * T4, free (12/16/2019 1:03 AM CDT) T4, free 1.19 0.90 - 1.70 ng/dL [facility] Specimen Blood Performing Organization Address [facility]/ZIP [facility] P patricia Number [facility] DEPARTMENT [address] [place] [address] PATHOLOGY AND GENOMIC MEDICINE [facility] [address] [place] [address] [facility] * Basic metabolic panel (12/16/2019 1:03 AM CDT) Only the most recent of 2 results within the time period is included. Sodium 140 135 - 148 mEq/L [facility] Potassium 3.3 (L) 3.5 - 5.0 mEq/L [facility] Chloride 102 98 - 112 mEq/L [facility] CO2 28 24 - 31 mEq/L [facility] Anion gap 10@ANIO 7 - 15 mEq/L [facility] BUN 10 6 - 20 mg/dL [facility] Creatinine 0.70 0.50 - 0.90 mg/dL [facility] Glucose 90 65 - 99 mg/dL [facility] Calcium 9.9 8.3 - 10.2 mg/dL [facility] Specimen Blood Performing Organization Address City/State/ZIP Code P patricia Number [facility] DEPARTMENT OF [address] [place] [address] [place] [address] PATHOLOGY AND GENOMIC MEDICINE [address] [place] [id number] [facility] * MRI Lumbar Spine Wo Contrast (12/08/2019 12:44 AM CDT) Specimen Narrative Performed At EXAMINATION: MRI LUMBAR SPINE WO CONTRAST [facility] CLINICAL HISTORY: hx of central steno sis now parathesia COMPARISON: None. FINDINGS: Lowermost functional disc space is assu med to be L5-S1. Mild retrolisthesis at L5-S1. No suspicious focal bone marrow lesions Visualized spinal cord is normal in agustin earance. Disc desiccation at L4-5 and L5-S1. L1-2: No central canal or foraminal christina rowing. L2-3: No central canal or foraminal christina rowing. L3-4: Mild facet arthropathy. No centra l canal or foraminal narrowing. L4-5: Bilateral facet arthropathy. No c entral canal or foraminal narrowing. L5-S1: Bilateral facet arthropathy. Mil d retrolisthesis. No central canal or foraminal narrowing. IMPRESSION: Multilevel facet arthropathy without ce ntral canal or foraminal narrowing. [facility] Procedure Note Hm Interface, Radiology Results Incoming - 12/08/2019 12:59 AM CDT EXAMINATION: MRI LUMBAR SPINE WO CONTRAST CLINICAL HISTORY: hx of central stenosis now parathesia COMPARISON: None. FINDINGS: Lowermost functional disc space is assumed to be L5-S1. Mild retrolisthesis at L5-S1. No suspicious focal bone marrow lesions Visualized spinal cord is normal in appearance. Disc desiccation at L4-5 and L5-S1. L1-2: No central canal or foraminal narrowing. L2-3: No central canal or foraminal narrowing. L3-4: Mild facet arthropathy. No central canal or foraminal narrowing. L4-5: Bilateral facet arthropathy. No central canal or foraminal narrowing. L5-S1: Bilateral facet arthropathy. Mild retrolisthesis. No central canal or foraminal narrowing. IMPRESSION: Multilevel facet arthropathy without central canal or foraminal narrowing. [facility] Performing Organization Address [facility] Code P patricia Number [facility] [address] [place] [address] * MRI Thoracic Spine Wo Contrast (12/08/2019 12:37 AM CDT) Specimen Narrative Performed At EXAMINATION: MRI THORACIC SPINE WO CONTRAST [facility] CLINICAL HISTORY: hx of central steno sis now parathesia COMPARISON: None. Findings: Thoracic spine alignment is within norm al limits. No suspicious focal bone marrow lesions . Visualized spinal cord is normal in siz e and signal intensity. No significant degenerative disc diseas e. Mild multilevel facet arthropathy. No central canal or foraminal narrowing in thoracic spine. IMPRESSION: No central canal or foraminal narrowing in the thoracic spine. [facility] Procedure Note Hm Interface, Radiology Results Incoming - 12/08/2019 12:42 AM CDT EXAMINATION: MRI THORACIC SPINE WO CONTRAST CLINICAL HISTORY: hx of central stenosis now parathesia COMPARISON: None. Findings: Thoracic spine alignment is within normal limits. No suspicious focal bone marrow lesions. Visualized spinal cord is normal in size and signal intensity. No significant degenerative disc disease. Mild multilevel facet arthropathy. No central canal or foraminal narrowing in thoracic spine. IMPRESSION: No central canal or foraminal narrowing in the thoracic spine. [facility] Performing Organization Address [facility] Code P patricia Number [facility] [address] [place] [address] * MRI Cervical Spine Wo Contrast (12/08/2019 12:20 AM CDT) Only the most recent of 2 results within the time period is included. Specimen Narrative Performed At EXAMINATION: MRI CERVICAL SPINE WO CONTRAST [facility] CLINICAL HISTORY: hx of central steno sis parathesia COMPARISON: January 01, 2019 FINDINGS: Reversal cervical lordosis. Multilevel disc space narrowing and end plate degenerative changes worst at C4-5 and C5-6. No suspicious focal bone marrow lesions . Visualized spinal cord is normal in agustin earance. C2-3: No canal or foraminal narrowing. C3-4: No canal or foraminal narrowing. C4-5: Posterior osteophyte disc complex asymmetric to the right causes mild effacement of subarachnoid space. No fo raminal narrowing. C5-C6: Posterior osteophyte disc comple x asymmetric to the right causes stable narrowing of the canal. There is flatte cali of the right ventral surface of the cord. Facet and uncal arthrosis causes stable left foraminal narrowing. C6-C7: Posterior osteophyte disc comple x asymmetric to the left causes stable narrowing of the canal. Facet and uncal arthrosis causes stable left foraminal narrowing. C7-T1: No central canal or foraminal na rrowing. IMPRESSION: Stable multilevel degenerative changes worst at C5-6. [facility] Procedure Note Hm Interface, Radiology Results 12/08/2019 12:39 AM CDT EXAMINATION: MRI CERVICAL SPINE WO CONTRAST CLINICAL HISTORY: hx of central stenosis parathesia COMPARISON: January 01, 2019 FINDINGS: Reversal cervical lordosis. Multilevel disc space narrowing and endplate degenerative changes worst at C4-5 and C5-6. No suspicious focal bone marrow lesions. Visualized spinal cord is normal in appearance. C2-3: No canal or foraminal narrowing. C3-4: No canal or foraminal narrowing. C4-5: Posterior osteophyte disc complex asymmetric to the right causes mild effacement of subarachnoid space. No foraminal narrowing. C5-C6: Posterior osteophyte disc complex asymmetric to the right causes stable narrowing of the canal. There is flattening of the right ventral surface of the cord. Facet and uncal arthrosis causes stable left foraminal narrowing. C6-C7: Posterior osteophyte disc complex asymmetric to the left causes stable narrowing of the canal. Facet and uncal arthrosis causes stable left foraminal narrowing. C7-T1: No central canal or foraminal narrowing. IMPRESSION: Stable multilevel degenerative changes worst at C5-6. [facility] Performing Organization Address City/[facility]/ZIP Code P patricia Number [facility] [address] [place] [address] * MRI Brain Wo Contrast (12/08/2019 12:20 AM CDT) Only the most recent of 2 results within the time period is included. Specimen Narrative Performed At [facility] EXAMINATION: MRI BRAIN WO CONTRAST CLINICAL HISTORY: parathesia COMPARISON: November 02, 2019 Findings: No intracranial hemorrhage, acute ische van, extra-axial fluid collections or parenchymal mass lesions. No hydrocepha eliazar. No suspicious focal bone marrow lesions. IMPRESSION: No acute intracranial abnormalities or mass lesions. [facility] Procedure Note Hm Interface, Radiology Results Incoming - 12/08/2019 12:35 AM CDT EXAMINATION: MRI BRAIN WO CONTRAST CLINICAL HISTORY: parathesia COMPARISON: November 02, 2019 Findings: No intracranial hemorrhage, acute ischemia, extra-axial fluid collections or parenchymal mass lesions. No hydrocephalus. No suspicious focal bone marrow lesions. IMPRESSION: No acute intracranial abnormalities or mass lesions. [facility] Performing Organization Address [facility]/ZIP Code P patricia Number [facility] [address] [place] [address] * Ionized calcium (12/07/2019 11:28 PM CDT) pH 7.36 [facility] Ionized calcium 1.18 1.11 - 1.32 mmol/L [facility] Specimen Blood Performing Organization Address [facility]/ZIP Code P patricia Number [facility] DEPARTMENT OF [address] [place] [address] [place] [address] PATHOLOGY AND GENOMIC MEDICINE [address] [place] * Chlamydia gonorrhoeae and trichomonas panel (11/11/2019 6:59 PM CDT) Chlamydia Negative for Chlamydia [place] trachomatis by trachomatis. [facility] PCR Comment: HOSPITAL Specimen Information Specimen Source: Cervical Specimen Site: Cervical swab Neisseria Negative for Neisseria [place] gonorrhoeae by gonorrhoeae. [facility] PCR [facility] Trichomonas Negative for Trichomonas [place] vaginalis by vaginalis. [facility] PCR [facility] Specimen Cervical - Cervical swab Performing Organization Address City/[facility]/ZIP Code P patricia Number [facility] DEPARTMENT OF [address] [place] [address] PATHOLOGY AND GENOMIC MEDICINE [place] [facility] [address] [place] [address] HOSPITAL * Wet prep (11/11/2019 6:59 PM CDT) Wet prep result No Trichomonas vaginalis or [place] budding yeast seen [facility] No Clue cells seen [facility] Comment: HOSPITAL Specimen Information Specimen Source: Vaginal Specimen Site: Not otherwise specified Specimen Vaginal - Not otherwise specified Performing Organization Address City/State/ZIP Code P patricia Number [facility] DEPARTMENT OF [address] [address] PATHOLOGY AND GENOMIC MEDICINE [facility] [address] [place] [address] HOSPITAL * COVID-19 qualitative PCR (11/08/2019 9:09 AM CDT) Only the most recent of 4 results within the time period is included. Interpretation Positive results are [place] indicative of active infection [facility] with 2019-nCoV but do not rule HOSPITAL out bacterial infection or coinfection with other viruses. The agent detected may not be the definite cause of disease. COVID-19 Detected (A) Not-Detected [place] qualitative PCR [facility] result HOSPITAL COVID-19 See link below for PDF Lab [place] qualitative PCR ReportComment: Case Number: [facility] [id number] HOSPITAL Specimen Nasopharyngeal swab Performing Organization Address City/[facility] P particia Number [facility] DEPARTMENT OF [address] [place] [address] PATHOLOGY AND GENOMIC MEDICINE [place] [phone] [place] [address] * CT Head Wo Contrast (11/02/2019 5:37 AM CDT) Only the most recent of 2 results within the time period is included. Specimen Narrative Performed At EXAMINATION: CT HEAD WO CONTRAST [facility] CLINICAL HISTORY: headache COMPARISON: 08/02/2019 TECHNIQUE: Noncontrast enhanced images of the brain were obtained from the skull base to the vertex. Both soft tissue an d bone reconstruction algorithms were performed. CT imaging was performed with iterative reconstruction technique and/or automated exposure control to reduce ra diation dose. IMPRESSION: No intracranial hemorrhage, mass, mass effect, or herniation. No acute osseous abnormalities. Mild mu cosal thickening of left maxillary sinus. Minimal air-fluid levels seen of left s phenoid sinus. Summary: No acute intracranial abnormalities. [id number] Procedure Note Hm Interface, Radiology Results Incoming - 11/02/2019 5:51 AM CDT EXAMINATION: CT HEAD WO CONTRAST CLINICAL HISTORY: headache COMPARISON: 08/02/2019 TECHNIQUE: Noncontrast enhanced images of the brain were obtained from the skull base to the vertex. Both soft tissue and bone reconstruction algorithms were performed. CT imaging was performed with iterative reconstruction technique and/or automated exposure control to reduce radiation dose. IMPRESSION: No intracranial hemorrhage, mass, mass effect, or herniation. No acute osseous abnormalities. Mild mucosal thickening of left maxillary sinus. Minimal air-fluid levels seen of left sphenoid sinus. Summary: No acute intracranial abnormalities. [id number] Performing Organization Address City/[facility]/ZIP Code P patricia Number [facility] [address] [place] [address] * Lactic acid level, SEPSIS - Now and repeat 2x every 3 hours (11/02/2019 5:09 AM CDT) Pathologist [facility] Lactic acid 0.9 0.5 - 2.2 mmol/L [facility] Specimen Blood Performing Organization Address City/[facility] P patricia Number [facility] DEPARTMENT OF [address] [place] [address] PATHOLOGY AND GENOMIC MEDICINE [address] * hCG qualitative, serum screen (10/26/2019 1:50 AM CDT) Only the most recent of 3 results within the time period is included. Pathologist [facility] hCG Negative [place] qualitative, Comment: [facility] serum The manufacturers stated [facility] sensitivity of HcG test for HOSPITAL serum is >/= 10 mIU/ml and urine is >/= 20mIU/ml. Specimen Blood Performing Organization Address City/[facility] [place] [address] PATHOLOGY AND GENOMIC MEDICINE [address] * Creatine kinase, total (CPK) (10/26/2019 1:50 AM CDT) Only the most recent of 2 results within the time period is included. Pathologist [facility] Creatine kinase 63 26 - 192 U/L [facility] Specimen Blood Performing Organization Address City/State/ZIP Code P patricia Number [facility] DEPARTMENT OF [address] [place] [address] PATHOLOGY AND GENOMIC MEDICINE [facility] [address] * XR Chest 1 Vw Portable (10/26/2019 1:41 AM CDT) Specimen Narrative Performed At CLINICAL HISTORY: 39 years Female cp [facility] COMPARISON: 2 views of the chest from 05/12/2019. IMPRESSION: Lines/Tubes: None. Lungs/Pleura: The lungs are clear. No pleural effusion or pneumothorax. Heart/Mediastinum: The cardiomediastina l silhouette is normal. Bones: No acute osseous abnormality. [facility]-[id number] Procedure Note Hm Interface, Radiology Results Incoming - 10/26/2019 1:45 AM CDT CLINICAL HISTORY: 39 years Female cp COMPARISON: 2 views of the chest from 05/12/2019. IMPRESSION: Lines/Tubes: None. Lungs/Pleura: The lungs are clear. No pleural effusion or pneumothorax. Heart/Mediastinum: The cardiomediastinal silhouette is normal. Bones: No acute osseous abnormality. [id number] Performing Organization Address City/State/ZIP Code P patricia Number [facility] [address] [place] [address] * CT Renal Stone Protocol (08/17/2019 12:18 AM CDT) Specimen Narrative Performed At EXAMINATION: CT RENAL STONE PROTOCOL [facility] CLINICAL HISTORY:39 years Female flank pain TECHNIQUE: Multiple axial images of t he abdomen and pelvis were obtained without intravenous administration of i odinated contrast. Sagittal and coronal computerized reformatted images were al so obtained. The lack of intravenous contrast reduces the sensitivity of detecting solid organ di sease. CT imaging was performed with iterative reconstruction techniques and /or automated exposure control to reduce radiation dose. COMPARISON: CT abdomen/pelvis 04/10/19 19 IMPRESSION: LUNG BASES: The lung bases are free of acute diseas e. ABDOMEN: Liver: Scattered hepatic cysts are seen measuring up to 1.4 cm in the tip of the liver. Additional scattered subcentimet er hypodensities in the liver too small to fully characterize, but likely repre sent cysts. Gallbladder/Biliary: The gallbladder is mostly contracted. There is no evidence of intra or extrahepatic biliary ductal dilatation. Spleen: The spleen is not enlarged. Pancreas: The pancreas is unremarkable. Adrenal Glands: A 1.2 cm nodule in the left adrenal gland is suggestive of an adenoma. The right adrenal gland is unr emarkable. Kidneys: The kidneys are unremarkable. No mass, hydronephrosis or calculi. Vascular: The abdominal aorta is nonane urysmal. Nodes: No enlarged retroperitoneal or m esenteric lymphadenopathy. Bowel: No bowel obstruction or inflamma tory changes. The appendix is normal. Peritoneum/retroperitoneum: No ascites or fluid collections. PELVIS: The urinary bladder is partially decomp ressed causing mild wall thickening. The uterus and adnexa are grossly unremarka ble. MUSCULOSKELETAL: No suspicious osseous lesions. SUMMARY: 1.No nephrolithiasis or hydronephrosis. 2.No acute intra-abdominal or pelvic ab normality. 3.Other findings as above. [id number] Procedure Note [facility], Radiology Results [facility] - 08/17/2019 12:26 AM CDT EXAMINATION: CT RENAL STONE PROTOCOL CLINICAL HISTORY:39 years Female flank pain TECHNIQUE: Multiple axial images of the abdomen and pelvis were obtained without intravenous administration of iodinated contrast. Sagittal and coronal computerized reformatted images were also obtained. The lack of intravenous contrast reduces the sensitivity of detecting solid organ disease. CT imaging was performed with iterative reconstruction techniques and/or automated exposure control to reduce radiation dose. COMPARISON: CT abdomen/pelvis 04/10/2018 IMPRESSION: LUNG BASES: The lung bases are free of acute disease. ABDOMEN: Liver: Scattered hepatic cysts are seen measuring up to 1.4 cm in the tip of the liver. Additional scattered subcentimeter hypodensities in the liver too small to fully characterize, but likely represent cysts. Gallbladder/Biliary: The gallbladder is mostly contracted. There is no evidence of intra or extrahepatic biliary ductal dilatation. Spleen: The spleen is not enlarged. Pancreas: The pancreas is unremarkable. Adrenal Glands: A 1.2 cm nodule in the left adrenal gland is suggestive of an adenoma. The right adrenal gland is unremarkable. Kidneys: The kidneys are unremarkable. No mass, hydronephrosis or calculi. Vascular: The abdominal aorta is nonaneurysmal. Nodes: No enlarged retroperitoneal or mesenteric lymphadenopathy. Bowel: No bowel obstruction or inflammatory changes. The appendix is normal. Peritoneum/retroperitoneum: No ascites or fluid collections. PELVIS: The urinary bladder is partially decompressed causing mild wall thickening. The uterus and adnexa are grossly unremarkable. MUSCULOSKELETAL: No suspicious osseous lesions. SUMMARY: 1.No nephrolithiasis or hydronephrosis. 2.No acute intra-abdominal or pelvic abn ormality. 3.Other findings as above. [id number] Performing Organization Address [facility] Code P patricia Number [facility] [address] [place] [address] * XR Chest 2 Vw (05/12/2019 1:57 PM MACHINE ROPE MAKER) Specimen Narrative Performed At EXAMINATION: XR CHEST 2 VW [facility] CLINICAL HISTORY: chest pain XR CHEST 2 VW images are submitted COMPARISON: 12/24/2018 FINDINGS: The cardiac silhouette is normal in siz e. The pulmonary vasculature is within normal limits. The lung zones are clear . There is no pleural effusion or pneumothorax. IMPRESSION: 1. There is no acute cardiopulmonary di sease. [id number] Procedure Note Hm Interface, Radiology Results Incoming - 05/12/2019 2:02 PM MACHINE ROPE MAKER EXAMINATION: XR CHEST 2 VW CLINICAL HISTORY: chest pain XR CHEST 2 VW images are submitted COMPARISON: 12/24/2018 FINDINGS: The cardiac silhouette is normal in size. The pulmonary vasculature is within normal limits. The lung zones are clear. There is no pleural effusion or pneumothorax. IMPRESSION: 1. There is no acute cardiopulmonary dis ease. [id number] Performing Organization Address [facility] P patricia Number [facility] [address] [place] [address] * Lipid panel (01/02/2019 12:00 PM CDT) Cholesterol 164 0 - 199 mg/dL [facility] Triglycerides 75 0 - 149 mg/dL [facility] HDL cholesterol 64 40 - 9,999 mg/dL [facility] LDL cholesterol 111 (H)Comment: Result 0 - 99 mg/dL [facility] obtained by direct LDL [facility] measurement [facility] Lipid panel See below [place] interpretation Comment: [facility] Total Cholesterol (mg/dL) [facility] LDL Cholesterol HOSPITAL (mg/dL) <200 Desirable <100 Optimal 200-239 Borderline-high 100-129 Near or above optimal >=240 High 130-159 Borderline-high 160-189 High >=190 Very high HDL Cholesterol (mg/dL) Triglycerides (mg/dL) <40 Low <150 Normal >=60 High 150-199 Borderline-high 200-499 High >=500 Very high Risk Catergories that modify LDL goals. Risk Catergories LDL goal (mg/dL) CHD and CHD risk equivalent <100 (10-year risk >20%) Multiple (2+) risk factors <130 (10-year risk =<20%) 0-1 risk factors <160 (<10-year risk) Defining levels of lipids in metabolic syndrome Triglycerides >=150 mg/dL HDL Cholesterol Men <40 mg/dL Women <50 mg/dL Non-HDL cholesterol is a second target for therapy in persons with high triglycerides (>=200 mg/dL) Specimen Plasma specimen Performing Organization Address City/[facility] P patricia Number [facility] DEPARTMENT OF [address] [place] [id number] PATHOLOGY AND GENOMIC MEDICINE [facility] [address] [place] [address] HOSPITAL * Urine drugs of abuse screen (01/02/2019 9:00 AM CDT) Amphetamine Negative [place] screen, urine [facility] Barbiturate Negative [place] screen, urine [facility] Benzodiazepine Negative [place] screen, urine [facility] Cocaine screen, Negative [place] urine [facility] Methadone Negative [place] metabolite [facility] (EDDP), urine [facility] Opiates screen, Negative [place] urine [facility] Oxycodone Negative [place] screen, urine [facility] Phencyclidine Negative [place] screen, urine [facility] Cannabinoid Negative [place] screen, urine Comment: [facility] Drug screen minimum [facility] concentration of detectability HOSPITAL Amphetamines 1000 ng/mL Barbiturates 200 ng/mL Benzodiazepines 300 ng/mL Cocaine 300 ng/mL Methadone 300 ng/mL Opiates 300 ng/mL Oxycodone 300 ng/mL Phencyclidine 25 ng/mL Cannabinoids 50 ng/mL Tricyclics 1000 ng/mL Results are from screening tests and should only be used for medical evaluation. Drug testing for legal purposes requires definitive (or confirmatory) testing methods, which are available upon request. Contact the laboratory if definitive testing is required. Specimen Urine Performing Organization Address City/State/[facility] Code P patricia Number [facility] DEPARTMENT OF [address] [place] [address] PATHOLOGY AND GENOMIC MEDICINE [facility] [address] * Troponin, I-Stat (01/02/2019 2:03 AM CDT) Troponin, 0.00 0.00 - 0.08 ng/mL [place] I-Stat Comment: [facility] 0.09 - 1.49 ng/ml [facility] May indicate increased risk HOSPITAL of acute coronary syndrome. >=1.5 ng/ml Consistent with acute myocardial infarction. The diagnostic value of a single normal or non-diagnostic result is questionable. Serial samples at 2-6 hour intervals are required to rule out acute myocardial injury. Specimen Plasma specimen Performing Organization Address City/[facility]/ZIP Code P patricia Number [facility] [address] [place] [address] PATHOLOGY AND GENOMIC MEDICINE [facility] [address] [place] [address] HOSPITAL * Gram stain (01/01/2019 6:59 PM CDT) Pathologist [facility] Gram stain No WBC's or organisms seen. [place] result Comment: [facility] Specimen Information HOSPITAL Specimen Source: Urine Specimen Site: Clean catch Specimen Urine Performing Organization Address City/[facility]/ZIP Code P patricia Number [facility] DEPARTMENT OF [address] [place] [address] PATHOLOGY AND GENOMIC MEDICINE [address] * CRITICAL CARE (01/01/2019 6:04 PM CDT) Narrative Performed At Heron Harrison MD 01/01/2019 7:02 PM Critical Care Performed by: Heron Harrison MD Authorized by: Heron Harrison MD Critical care provider statement: Critical care time (minutes): 33 Critical care time was exclusive of: Separately billable procedures and treating other patients and teaching ti me Critical care was necessary to treat or prevent imminent or life-threatening deterioration of the f ollowing conditions: EXCELSIOR MACHINE FEEDER failure or compromise (Code CVA ) Critical care was time spent personal ly by me on the following activities: Ordering and performing t reatments and interventions, ordering and review of laboratory studi es, ordering and review of radiographic studies, pulse oximetry, r e-evaluation of patient's condition, development of treatment tigre n with patient or surrogate, discussions with consultants, discussio ns with primary provider, evaluation of patient's response to antonio atment, interpretation of cardiac output measurements and obtaining histo ry from patient or surrogate * CTA Neck W Wo Contrast (01/01/2019 5:52 PM CDT) Specimen Narrative Performed At EXAMINATION: CT ANGIOGRAM NECK W WO CONTRAST RA [facility] CLINICAL HISTORY: cva COMPARISON: None. TECHNIQUE: CTA imaging was performed wi th administration of contrast, using iterative reconstruction technique and/ or automated exposure control to reduce radiation dose. 3-D reconstructions are processed off-line. FINDINGS: AORTIC ARCH: Left-sided aortic arch wit h normal branching pattern. Limited views show no evident dissection, aneur ysms, penetrating ulcer or coarctation. No evidence of proximal occlusion or fl ow-limiting stenosis at the ostium of the supraaortic arteries. RIGHT: COMMON CAROTID ARTERY: Normal, no proxi mal flow-limiting stenosis, occlusion, dissection, aneurysms, pseudoaneurysms or vascular malformations. CAROTID BIFURCATION AND ICA: Normal, no proximal flow-limiting stenosis, occlusion, dissection, aneurysms, pseud oaneurysms or vascular malformations. EXTERNAL CAROTID ARTERY: Normal, no pro ximal flow-limiting stenosis, occlusion, dissection, aneurysms, pseudoaneurysms or vascular malformations. VERTEBRAL ARTERY: Normal, no proximal f low-limiting stenosis, occlusion, dissection, aneurysms, pseudoaneurysms or vascular malformations. LEFT: COMMON CAROTID ARTERY: Normal, no proxi mal flow-limiting stenosis, occlusion, dissection, aneurysms, pseudoaneurysms or vascular malformations. CAROTID BIFURCATION AND ICA: Normal, no proximal flow-limiting stenosis, occlusion, dissection, aneurysms, pseud oaneurysms or vascular malformations. EXTERNAL CAROTID ARTERY: Normal, no pro ximal flow-limiting stenosis, occlusion, dissection, aneurysms, pseudoaneurysms or vascular malformations. VERTEBRAL ARTERY: Normal, no proximal f low-limiting stenosis, occlusion, dissection, aneurysms, pseudoaneurysms or vascular malformations. OTHER: None IMPRESSION: No evidence of proximal flow-limiting s tenosis, occlusion, dissection, aneurysms, pseudoaneurysms or vascular malformations. [facility]-[id number] Procedure Note Interface, Radiology Results Incoming - 01/01/2019 6:05 PM CDT EXAMINATION: CT ANGIOGRAM NECK W WO CONTRAST CLINICAL HISTORY: cva COMPARISON: None. TECHNIQUE: CTA imaging was performed with administration of contrast, using iterative reconstruction technique and/or automated exposure control to reduce radiation dose. 3-D reconstructions are processed off-line. FINDINGS: AORTIC ARCH: Left-sided aortic arch with normal branching pattern. Limited views show no evident dissection, aneurysms, penetrating ulcer or coarctation. No evidence of proximal occlusion or flow-limiting stenosis at the ostium of the supraaortic arteries. RIGHT: COMMON CAROTID ARTERY: Normal, no proximal flow-limiting stenosis, occlusion, dissection, aneurysms, pseudoaneurysms or vascular malformations. CAROTID BIFURCATION AND ICA: Normal, no proximal flow-limiting stenosis, occlusion, dissection, aneurysms, pseudoaneurysms or vascular malformations. EXTERNAL CAROTID ARTERY: Normal, no proximal flow-limiting stenosis, occlusion, dissection, aneurysms, pseudoaneurysms or vascular malformations. VERTEBRAL ARTERY: Normal, no proximal flow-limiting stenosis, occlusion, dissection, aneurysms, pseudoaneurysms or vascular malformations. LEFT: COMMON CAROTID ARTERY: Normal, no proximal flow-limiting stenosis, occlusion, dissection, aneurysms, pseudoaneurysms or vascular malformations. CAROTID BIFURCATION AND ICA: Normal, no proximal flow-limiting stenosis, occlusion, dissection, aneurysms, pseudoaneurysms or vascular malformations. EXTERNAL CAROTID ARTERY: Normal, no proximal flow-limiting stenosis, occlusion, dissection, aneurysms, pseudoaneurysms or vascular malformations. VERTEBRAL ARTERY: Normal, no proximal flow-limiting stenosis, occlusion, dissection, aneurysms, pseudoaneurysms or vascular malformations. OTHER: None IMPRESSION: No evidence of proximal flow-limiting stenosis, occlusion, dissection, aneurysms, pseudoaneurysms or vascular malformations. [facility]-[id number] Performing Organization Address City/State/ZIP Code P patricia Number [facility] [address] [place] [address] * CTA Head W Wo Contrast (01/01/2019 5:52 PM CDT) Specimen Narrative Performed At EXAMINATION: CT ANGIOGRAM HEAD W WO CONTRAST RA [facility] CLINICAL HISTORY: cva COMPARISON: None. TECHNIQUE: CTA imaging was performed wi and without administration of IV contrast, using iterative reconstructio n technique and/or automated exposure control to reduce radiation dose. 3-D r econstructions are processed off-line. FINDINGS: RIGHT: ICA: Normal, no proximal flow-limiting stenosis, occlusion, dissection, aneurysms, pseudoaneurysms or vascular malformations. JOSEE: Normal, no proximal flow-limiting stenosis, occlusion, dissection, aneurysms, pseudoaneurysms or vascular malformations. MCA: Normal, no proximal flow-limiting stenosis, occlusion, dissection, aneurysms, pseudoaneurysms or vascular malformations. TIMING ADJUSTER: Normal, no proximal flow-limiting stenosis, occlusion, dissection, aneurysms, pseudoaneurysms or vascular malformations. VERTEBRAL ARTERY: Normal, no proximal f low-limiting stenosis, occlusion, dissection, aneurysms, pseudoaneurysms or vascular malformations. LEFT: ICA: Normal, no proximal flow-limiting stenosis, occlusion, dissection, aneurysms, pseudoaneurysms or vascular malformations. JOSEE: Normal, no proximal flow-limiting stenosis, occlusion, dissection, aneurysms, pseudoaneurysms or vascular malformations. MCA: Normal, no proximal flow-limiting stenosis, occlusion, dissection, aneurysms, pseudoaneurysms or vascular malformations. TIMING ADJUSTER: Normal, no proximal flow-limiting stenosis, occlusion, dissection, aneurysms, pseudoaneurysms or vascular malformations. VERTEBRAL ARTERY: Normal, no proximal f low-limiting stenosis, occlusion, dissection, aneurysms, pseudoaneurysms or vascular malformations. BASILAR ARTERY: Normal, no proximal ky w-limiting stenosis, occlusion, dissection, aneurysms, pseudoaneurysms or vascular malformations. OTHER: None IMPRESSION: 1. No evidence of proximal intracranial arterial flow-limiting stenosis, occlusion, aneurysms or high flow vascu lar malformations [facility]-[id number] Procedure Note [facility], Radiology Results Incoming - 01/01/2019 6:07 PM CDT EXAMINATION: CT ANGIOGRAM HEAD W WO CONTRAST CLINICAL HISTORY: cva COMPARISON: None. TECHNIQUE: CTA imaging was performed with and without administration of IV contrast, using iterative reconstruction technique and/or automated exposure control to reduce radiation dose. 3-D reconstructions are processed off-line. FINDINGS: RIGHT: ICA: Normal, no proximal flow-limiting stenosis, occlusion, dissection, aneurysms, pseudoaneurysms or vascular malformations. JOSEE: Normal, no proximal flow-limiting stenosis, occlusion, dissection, aneurysms, pseudoaneurysms or vascular malformations. MCA: Normal, no proximal flow-limiting stenosis, occlusion, dissection, aneurysms, pseudoaneurysms or vascular malformations. TIMING ADJUSTER: Normal, no proximal flow-limiting stenosis, occlusion, dissection, aneurysms, pseudoaneurysms or vascular malformations. VERTEBRAL ARTERY: Normal, no proximal flow-limiting stenosis, occlusion, dissection, aneurysms, pseudoaneurysms or vascular malformations. LEFT: ICA: Normal, no proximal flow-limiting stenosis, occlusion, dissection, aneurysms, pseudoaneurysms or vascular malformations. JOSEE: Normal, no proximal flow-limiting stenosis, occlusion, dissection, aneurysms, pseudoaneurysms or vascular malformations. MCA: Normal, no proximal flow-limiting stenosis, occlusion, dissection, aneurysms, pseudoaneurysms or vascular malformations. TIMING ADJUSTER: Normal, no proximal flow-limiting stenosis, occlusion, dissection, aneurysms, pseudoaneurysms or vascular malformations. VERTEBRAL ARTERY: Normal, no proximal flow-limiting stenosis, occlusion, dissection, aneurysms, pseudoaneurysms or vascular malformations. BASILAR ARTERY: Normal, no proximal flow-limiting stenosis, occlusion, dissection, aneurysms, pseudoaneurysms or vascular malformations. OTHER: None IMPRESSION: 1. No evidence of proximal intracranial arterial flow-limiting stenosis, occlusion, aneurysms or high flow vascular malformations [facility]-[id number] Performing Organization Address City/State/ZIP Code P patricia Number [facility] [address] [place] [address] * POC glucose (01/01/2019 5:45 PM CDT) POC glucose 70 65 - 100 mg/dL [place] Comment: [facility] Meter ID: [id number] [facility] Client Delivery Specialist: [facility] Specimen Performing Organization Address City/State/ZIP Code P patricia Number [facility] DEPARTMENT OF [address] [place] [address] PATHOLOGY AND GENOMIC MEDICINE [place] [facility] [address] * CT Stroke Brain Wo Contrast (01/01/2019 5:27 PM CDT) Specimen Narrative Performed At EXAMINATION: CT STROKE BRAIN WO CONTRAST [place] CLINICAL HISTORY: cva COMPARISON: CT head 06/07/2018 TECHNIQUE: Noncontrast head CT performe d using radiation dose reduction techniques. Technical factors are sherice luated and adjusted to ensure appropriate moderation of exposure. Automated dos e management technology is applied to adjust radiation exposure while achieving a diagnostic quality im age. FINDINGS: No evidence of acute intracranial hemor rhage, mass, mass effect, midline shift, or acute infarct. Ventricles and sulci are normal in appe arance for patient's age. Basal cisterns are clear. Calvarium is intact . Orbits are normal in appearance. No sig nificant paranasal sinus mucosal thickening. Mastoid air cells are clear . IMPRESSION: 1. No CT evidence of acute intracranial abnormality. Findings were discussed with and acknow ledged by HERON HARRISON at 01/01/2019 5:29 PM who verbalized understanding. [facility]-[id number] Procedure Note Hm Interface, Radiology Results Incoming - 01/01/2019 5:32 PM CDT EXAMINATION: CT STROKE BRAIN WO CONTRAST CLINICAL HISTORY: cva COMPARISON: CT head 06/07/2018 TECHNIQUE: Noncontrast head CT performed using radiation dose reduction techniques. Technical factors are evaluated and adjusted to ensure appropriate moderation of exposure. Automated dose management technology is applied to adjust radiation exposure while achieving a diagnostic quality image. FINDINGS: No evidence of acute intracranial hemorrhage, mass, mass effect, midline shift, or acute infarct. Ventricles and sulci are normal in appearance for patient's age. Basal cisterns are clear. Calvarium is intact. Orbits are normal in appearance. No significant paranasal sinus mucosal thickening. Mastoid air cells are clear. IMPRESSION: 1. No CT evidence of acute intracranial abnormality. Findings were discussed with and acknowledged by HERON HARRISON at 01/01/2019 5:29 PM who verbalized understanding. [facility]-[id number] Performing Organization Address City/State/ZIP Code P patricia Number [facility] [address] [place] [address] * Partial thromboplastin time, activated (01/01/2019 5:26 PM CDT) PTT 32.0 23.0 - 36.0 sec [place] Comment: [facility] PTT therapeutic range for [place] unfractionated heparin is HOSPITAL 61.0-112.0 seconds which corresponds to Anti-Xa 0.3-0.7 U/ml. Specimen Blood Performing Organization Address City/State/ZIP Code P patricia Number [facility] DEPARTMENT OF [address] [place] [address] PATHOLOGY AND GENOMIC MEDICINE [facility] [address] * Prothrombin time with INR (01/01/2019 5:26 PM CDT) Prothrombin 13.6 11.5 - 14.5 sec [facility] INR 1.07 [place] Comment: [facility] For patients on anticoagulant [place] therapy, reference ranges HOSPITAL below: Indication: INR Value Treatment of Venous Thrombosis, 2.0-3.0 pulmonary emboli, or prophylaxis of a venous thrombosis, or systemic emboli. High dose, high risk patients 3.0-4.5 with mechanical valves. NOTE: INR values over 3.0 are sometimes associated with gastrointestinal hemorrhage, especially values over 4.0. Specimen Blood Performing Organization Address [facility] P patricia Number [facility] DEPARTMENT OF [address] [place] [address] PATHOLOGY AND [place] [address] HOSPITAL * Type and screen (01/01/2019 5:26 PM CDT) ABO grouping O [facility] Rh type POS [facility] Antibody screen NEG [place] (gel) [facility] Specimen Blood Performing Organization Address [facility] P patricia Number [facility] DEPARTMENT OF [address] [place] [address] PATHOLOGY AND [place] [address] HOSPITAL * Hepatic function panel (01/01/2019 5:26 PM CDT) Albumin 3.8 3.5 - 5.0 g/dL [facility] Total bilirubin 0.9 0.2 - 1.2 mg/dL [facility] Bilirubin <0.2 0.0 - 0.4 mg/dL [place] direct [facility] Alkaline 61 0 - 104 U/L [place] phosphatase [facility] Protein 7.1 6.3 - 8.3 g/dL [facility] ALT 11 5 - 50 U/L [facility] AST 17 10 - 35 U/L [facility] Specimen Plasma specimen Performing Organization Address City/[facility] P patricia Number [facility] DEPARTMENT OF [address] [id number] PATHOLOGY AND GENOMIC MEDICINE [place] [phone] HOSPITAL after 12/28/2018 Insurance Type Payer Benefit Subscriber ID Effective Phone Address Plan / Dates Group Self-Pay COVID19 [employer]SA UNINSURED COVID19 [id number] 0-P TESTING AND TREATMENT HRSA resent FUND UNINSURED TESTING AND TREATMENT FUND Advance Directives For more information, please contact: [phone] Patient Associate Program Manager Explanation Type Date Recorded Advance Directives, 08/13/2018 5:10 PM Living Will and Medical Power of System Administrator Advance Directives, 07/25/2019 5:18 PM Living Will and Medical Power of System Administrator Advance Directives, 04/11/2018 5:48 AM Living Will and Medical Power of System Administrator Advance Directives, 06/01/2018 1:51 PM Living Will and Medical Power of System Administrator Advance Directives, 09/19/2019 12:01 PM Living Will and Medical Power of System Administrator Advance Directives, 12/24/2018 2:48 AM Living Will and Medical Power of System Administrator Advance Directives, 12/24/2018 2:35 PM Living Will and Medical Power of System Administrator Advance Directives, 01/01/2019 6:52 PM Living Will and Medical Power of System Administrator Advance Directives, 08/15/2019 12:44 AM Living Will and Medical Power of System Administrator Advance Directives, 08/15/2019 1:00 AM Living Will and Medical Power of System Administrator Advance Directives, 08/17/2019 12:20 AM Living Will and Medical Power of System Administrator Advance Directives, 10/26/2019 1:39 AM Living Will and Medical Power of System Administrator Advance Directives, 11/02/2019 4:46 AM Living Will and Medical Power of System Administrator Advance Directives, 11/08/2019 9:14 AM Living Will and Medical Power of System Administrator Advance Directives, 11/11/2019 6:21 PM Living Will and Medical Power of System Administrator Advance Directives, 12/07/2019 11:20 PM Living Will and Medical Power of System Administrator Advance Directives, 12/21/2019 7:28 PM Living Will and Medical Power of System Administrator Advance Directives, 12/25/2019 7:47 PM Living Will and Medical Power of System Administrator
[2019-12-29 00:02] LABS: ANION GAP 13.5 mmol/L (8-16); BLOOD UREA NITROGEN 11 mg/dL (7-26); BUN/CREATININE RATIO 16 (6-25); CALCIUM 9.3 mg/dL (8.4-10.2); CARBON DIOXIDE 25 mmol/L (22-29); CHLORIDE 106 mmol/L (98-107); CREATININE, SERUM 0.69 mg/dL (0.57-1.11); EST GLOMERULAR FILTRATION RATE > 60 ML/MIN (60-); GLUCOSE 86 mg/dL (74-118); POTASSIUM 3.5 mmol/L (3.5-5.1); SODIUM 141 mmol/L (136-145)
--- OUTSIDE RECORDS SUMMARY | 2019-12-29 00:02 | XMS REPORT | Continuity of Care Document ---
Author Author [facility] t Organization [facility] Address [address] [place] [address] Phone Unavailable Care Team Providers Care Director Of Customer Service Name Role Phone JAYLAN KELLY, (NS) COLBY PCP Padilla KELLY, Lizette Attphys Asim Peralta DO Attphys [phone] Gita Rojo DO Attphys Jerson KELLY, Usman Shelby Attphys Hunter KELLY, Dhruv Shelby Attphys Grupo KELLY, Gutierrez Harrington Attphys [phone] SHALINI WILKERSON Attphys Unavailable Gerry RN, Rosalind Attphys Unavailable Chani KELLY, Sunday Roman Attphys [phone] Miguel KELLY, Eduardo Montanez Attphys Nunez MD, Rodney Wiley Attphys Flip KELLY, Asim Alvarez Attphys [phone] Ranjith KELLY, Gianluca Aguirre Attphys Jaylan KELLY, Yoselin Santo Attphys Munir SESAY Attphys Unavailable COLBY CARVALHO Admphys Unavailable Payers Payer Name Policy Type Policy Number Effective Date Expiration Date Munir hoffmann COVID19 [employer] T[employer] MENT [id number] [employer] T[employer]ATMENT [id number] 2019 00:00:00 John Allen Problems Condition Name Condition Details Condition Category Status Onset Date Resolution Date Last Treatment Date Treating Clinician Comments Source COVID-19 virus detected COVID-19 virus detected Disease Active 2019-11-11 00:00:[address] 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 Disease Active 2019-08-29 00:00:00 John Allen Episodic cluster headache, not intractable Episodic cl uster headache, not intractable Disease Active 2019-01-03 00:00:00 John Allen Cervical spinal stenosis Cervical spinal stenosis Disease Acti ve 2019-01-03 00:00:[address] Left facial numbness Left facial numbness Disease Active 00:00:00 John Allen Hypertension Hypertension Disease Active 2019-01-02 00:00:00 John Allen Anxiety Anxiety Disease Active 2019-01-02 00:00:00 John Allen History of Past Illness Condition Name Condition Details Condition Category Status Onset Date Resolution Date Last Treatment Date Treating Clinician Comments Source Weakness of left upper extremity Weakness of left upper extremit y Disease Resolved 2019-01-02 00:00:00 2019-01-03 00:00:00 2019-01-03 17:11:24 John Allen Numbness and tingling of left upper and lower extremit y Numbness and tingling of left upper and lower extremity Disease Resolved 2019-01-02 00:00: 00 2019-01-03 00:00:00 2019-01-03 17:11:26 John Meth odist Weakness of left lower extremity Weakness of left lower extremit y Disease Resolved 2019-01-01 00:00:00 2019-01-03 00:00:00 2019-01-03 17:11:23 John Allen Allergies, Adverse Reactions, Alerts Allergy Name Allergy Type Status Severity Reaction(s) Onset Date Inacti ve Date Treating Clinician Comments Source Amlodipine Propensity to adverse reactions to drug Active Hives 2018-07-20 00:00:00 John Stevens t Family History Family Member Diagnosis Comments Start Date Stop Date Source Natural brother Osteochondroma [place] [employer] Natural father Hypertension John Allen Natural mother Diabetes John Patel thodist Natural mother Hypertension John Allen Natural mother Testicular cancer Aman Allen Natural mother Thyroid disease [place] [employer] Social History Social Habit Start Date Stop Date Quantity Comments Source Sex Assigned At Aman cast[place] Scientologist Exposure to SARS-CoV-2 (event) Not sure John Allen Tobacco use and exposure 2019-12-25 00:00:00 2019-12-25 00:00:00 Neve r used John Allen Alcohol intake 2019-12-25 00:00:00 2019-12-25 00:00:00 Current non-drinker of alcohol (finding) John Allen Tobacco Comment 2019-01-01 00:00:00 2019-01-01 00:00:00 quit 6 months ago John Allen Smoking Status Start Date Stop Date Source Former smoker 2019-12-25 00:00:00 2019-12-25 00:00:00 John Allen Medications Ordered Medication Name Filled Medication Name Start Date Stop Da te Current Medication? Ordering Clinician Indication Dosage Frequency Signature (SIG) Comments Components Source TiZANidine (Zanaflex) 4 MG capsule 2019-12-25 00:00:00 Y es 4mg [id number] Take 1 capsule (4 mg total) by mouth 3 ( three) times a day as needed for muscle spasms. John Allen famotidine (PEPCID) 40 MG tablet 2019-12-21 19:37:53 Yes 40mg QD Take 40 mg by mouth daily. John Allen acetaminophen-codeine (TYLENOL WITH CODEINE #3) 300-30 mg pe r tablet 2019-12-21 00:00:00 2019-12-31 23:59:00 Yes acute pain 1{tbl} Q6H Take 1-2 tablets by mouth every 6 (six) hours as needed for moderate pain for up to 10 days .acute pain. John Allen methocarbamoL (Robaxin-750) 750 MG tablet 12-15 00:00:00 2020-01-15 23:59:00 Yes 750mg Q.25D Take 1 tablet (750 mg total) by mouth 4 (four) times a day for 30 days. John baptiste lidocaine (Lidoderm) 5 % 2019-12-16 00:00:00 2019-12-21 00:00:00 No 1{patch} Q24H Place 1 patch on the skin da eric for 30 days. Remove & Discard patch within 12 hours or as directed by MD John Allen methylPREDNISolone (MEDROL DOSEPAK) 4 mg tablet 2019-12-16 00:00:00 2019-12-21 23:59:00 No follow package directions John Allen acetaminophen-codeine (TYLENOL WITH CODEINE #3) 300-30 mg pe r tablet 2019-12-08 00:00:00 2019-12-13 23:59:00 No acute pain 1{tbl} Q6H Take 1-2 tablets by mouth every 6 (six) hours as needed for severe pain for up to 5 days .acute pain. John Allen cetirizine (ZyrTEC) 10 MG tablet 2019-11-08 00:00:00 2019-11 23:59:00 No 10mg QD Take 1 tablet (10 mg total) by mouth daily for 30 days. John Allen amoxicillin-pot clavulanate (AUGMENTIN) 875-125 mg per table t 2019-11-08 00:00:00 2019-11-18 23:59:00 No 1{tbl} Q12H Take 1 tablet by mouth every 12 (twelve) hours for 10 days. John greene prochlorperazine (COMPAZINE) 10 MG tablet -06 00:00:00 2019-12-02 23:59:00 No 10mg Q.5D Take 1 tablet (10 mg total) by mouth 2 (two) times a day as needed for nausea or vomiting (headache) for up to 30 days. John Allen prochlorperazine (COMPAZINE) 10 MG tablet 8-06 00:00:2019-11-02 00:00:00 No 10mg Q.5D Take 1 tablet (10 mg total) by mouth 2 (two) times a day as needed for nausea or vomiting (headache) for up to 30 days. John Allen olmesartan (BENICAR) 5 MG tablet 2019-08-29 15:02:32 Yes 10mg QD Take 10 mg by mouth daily. John Allen omeprazole (PriLOSEC) 20 MG capsule 2019-08-29 15:02:32 Yes 20mg QD Take 20 mg by mouth daily. John Allen levothyroxine (SYNTHROID) 25 mcg tablet 2019-08-29 15:02:32 Yes 25ug QD Take 25 mcg by mouth daily. John greene linaCLOtide (LINZESS) 145 mcg capsule 2019-08-29 15:02 :32 2019-08-29 00:00:00 No 72ug QD Take 72 mcg by mouth daily before breakf ast. John Allen sucralfate (CARAFATE) 1 gram tablet 2019-08-29 15:02:3 2 2019-08-29 00:00:00 No 1g Q.5D Take 1 g by mouth 2 (two) times a day. G maria guadalupe at noon and 6pm John Allen metroNIDAZOLE (FLAGYL) 500 MG tablet 2019-08-29 15:02: 32 2019-08-29 00:00:00 No 500mg Q.5D Take 500 mg by mouth 2 (two) times a day . John Allen levocetirizine (XYZAL) 5 MG tablet 2019-08-29 15::32 00:00:00 No 5mg QD Take 5 mg by mouth daily. John Allen hydrOXYzine (VISTARIL) 25 MG capsule 2019-08-29 15:: 32 2019-08-29 00:00:00 No 25mg Q.[id number] Take 25 mg by mouth 3 (three) times a day as needed for itching. John Allen nitrofurantoin, macrocrystal-monohydrate, (MACROBID) 100 MG capsule 2019-08-17 00:00:00 2019-08-19 23:59:00 No 100mg Q.5D Take 1 capsule (100 mg total) by mouth 2 (two) times a day for 2 days. Kosta Allen nitrofurantoin, macrocrystal-monohydrate, (MACROBID) 100 MG capsule 2019-08-15 00:00:00 2019-08-20 23:59:00 No 100mg Q.5D Take 1 capsule (100 mg total) by mouth 2 (two) times a day for 5 days. Kosta Allen famotidine (PEPCID) 20 MG tablet 2019-02-27 00:00:00 2019-02 23:59:00 No 20mg Q.5D Take 1 tablet (20 mg total) by mouth 2 (two) times a day for 14 days. John Allen cyclobenzaprine (FLEXERIL) 10 mg tablet 01:16:57 2019-01-05 00:00:00 No 10mg Q.[id number] Ta ke 10 mg by mouth 3 (three) times a day as needed for muscle spasms. Rakesh Allen diazePAM (VALIUM) 5 MG tablet 2019-01-05 00:00:00 2019-01-10 23: 59:00 No 5mg Q8H Take 1 tablet (5 mg total) b y mouth every 8 (eight) hours as needed for muscle spasms for up to 5 days. John Allen levothyroxine (SYNTHROID) 25 mcg tablet 00:00:00 2019-02-03 23:59:00 No 25ug QD Take 1 tablet (25 mcg total) by mouth daily for 30 days. John Allen ciprofloxacin HCl (CIPRO) 500 MG tablet 00:00:00 2019-01-12 23:59:00 No 500mg Q.5D Take 1 tablet (500 mg total) by mouth 2 (two) times a day for 8 days. John Allen topiramate (TOPAMAX) 25 MG tablet 2019-01-03 00:00:00 2018 23:59:00 No 25mg Q.5D Take 1 tablet (2 5 mg total) by mouth 2 (two) times a day for 30 days. John Allen acetaminophen-codeine (TYLENOL WITH CODEINE #3) 300-30 mg pe r tablet 2019-01-03 00:00:00 2019-01-13 23:59:00 No acute pain 1{tbl} Q4H Take 1-2 tablets by mouth every 4 (four) hours as needed for moderate pain for up to 10 days .Acute Pain, cluster headache. Rakesh Allen orphenadrine (NORFLEX) 100 mg 12 hr tablet 01-01 18:24:31 2019-01-01 00:00:00 No 100mg Q.5D Take 100 mg by mouth 2 (two) ti mes a day. John Allen lisinopril (PRINIVIL,ZESTRIL) 10 mg tablet 01-01 18:24:22 2019-01-01 00:00:00 No 10mg QD Take 10 mg by mouth daily. John Allen hydrOXYzine (ATARAX) 25 MG tablet 2019-01-01 18:23:55 2018 00:00:00 No 25mg Q.5D Take 25 mg by mouth 2 (two) times a day as needed for itching. John Allen fluticasone propionate (FLONASE) 50 mcg/actuation nasal spra y 2019-01-01 18:23:52 2019-01-01 00:00:00 No 2{spray} QD 2 sprays by Each Nare route daily. John Allen fluticasone propion-salmeterol (ADVAIR) 100-50 mcg/dose DISK US 2019-01-01 18:23:45 2019-01-01 00:00:00 No 2{puff} Q.5D Inhale 2 puffs 2 (two) times a day. John Allen azithromycin (ZITHROMAX) 250 MG tablet 6 18:22:53 2019-01-01 00:00:00 No 250mg QD Take 250 mg by mouth daily. Take 2 tablets the first day, then 1 tablet daily for 4 days. John baptiste lidocaine HCl (lidocaine) 2 % solution 5 00:00:00 2019-01-01 00:00:00 No 15mL Q.5D 15 mL by mucou s membrane route 2 (two) times a day as needed (stomach pain) for up to 3 days. Swallow. John Allen dicyclomine (BENTYL) 20 mg tablet 2018-12-24 00:00:00 2018 23:59:00 No 20mg Q.5D Take 1 tablet (2 0 mg total) by mouth 2 (two) times a day as needed (abdominal pain) for up to 10 days. Rakesh Allen Immunizations Ordered Immunization Name Filled Immunization Name Date Status Comments Source Tdap 2018-07-05 00:00:00 Completed Chevy Allen Vital Signs Vital Name Observation Time Observation Value Comments Source Systolic blood pressure 2019-12-25 20:45:00 115 mm[Hg] John Allen Diastolic blood pressure 2019-12-25 20:45:00 76 mm[Hg] John Allen Heart rate 2019-12-25 20:45:00 58 /min John Allen Body temperature 2019-12-25 20:45:00 36.94 Elizabeth Rakesh Allen Respiratory rate 2019-12-25 20:45:00 18 /min Rakesh Allen Oxygen saturation in Arterial blood by Pulse oximetry 12-24 20:45:00 98 /min John Allen Body height 2019-12-25 19:12:00 167.6 cm John Allen Body weight 2019-12-21 19:01:00 75.751 kg John Allen BMI 2019-12-21 19:01:00 26.95 kg/m2 John Allen Procedures Procedure Date / Time Performed Performing Clinician Sourc e TROPONIN 2019-12-21 22:16:[address] ANGIOGRAM CHEST ABDOMEN PELVIS W AND OR WITHOUT CONTRAST 2019-12-21 20:56:05 Camden Peralta URINE CULTURE 2019-12-21 19:38:00 Camden Peralta HCG QUALITATIVE, URINE SCREEN 2019-12-21 19:38:00 Camden Peralta URINALYSIS SCREEN AND MICROSCOPY, WITH REFLEX TO CULTURE 19:38:00 Camden Peralta HC COMPLETE BLD COUNT W/AUTO DIFF 2019-12-21 19:23:00 Nate Robbins COMPREHENSIVE METABOLIC PANEL 2019-12-21 19:23:00 Donita Robbins TROPONIN 2019-12-21 19:23:00 Len Robbins B NATRIURETIC PEPTIDE 2019-12-21 19:23:00 Len Robbins ESTIMATED GFR 2019-12-21 19:23:00 Lne Robbins PHOSPHORUS LEVEL 2019-12-21 19:23:00 Len Robbins [place] Scientologist MAGNESIUM LEVEL 2019-12-21 19:23:00 WingkunLen SMEAR REVIEW 2019-12-21 19:23:00 Grupo ShaliniDimitriosAshley Gutierrez rehman Scientologist ECG ED PRELIMINARY INTERPRETATION 2019-12-21 19:16:19 Keila Peralta Asimclifton Allen ECG 12-LEAD 2019-12-21 19:00:32 Grupo ShaliniDimitriosAshley Gutierrez rehman Scientologist HC COMPLETE BLD COUNT W/AUTO DIFF 2019-12-16 01:03:00 Zari Rojo BASIC METABOLIC PANEL 2019-12-16 01:03:00 Jaimie Rojo [place] Scient[place] THYROID STIMULATING HORMONE 2019-12-16 01:03:00 Jaimie Rojo mmad T4, FREE 2019-12-16 01:03:00 Jaimie Rojo ESTIMATED GFR 2019-12-16 01:03:00 Jaimie Rojo MRI LUMBAR SPINE WO CONTRAST 2019-12-08 00:44:13 Heron Arthur MRI THORACIC SPINE WO CONTRAST 2019-12-08 00:37:15 Heron Arthur MRI CERVICAL SPINE WO CONTRAST 2019-12-08 00:20:39 Heron Arthur MRI BRAIN WO CONTRAST 2019-12-08 00:20:24 [facility] IONIZED CALCIUM 2019-12-07 23:28:00 Heron Arthur HC COMPLETE BLD COUNT W/AUTO DIFF 2019-12-07 23:28:00 Jamshid Arthur MAGNESIUM LEVEL 2019-12-07 23:28:00 Heron Arthur COMPREHENSIVE METABOLIC PANEL 2019-12-07 23:28:00 Heron Arthur PHOSPHORUS LEVEL 2019-12-07 23:28:00 Heron Arthur ESTIMATED GFR 2019-12-07 23:28:00 Heron Arthur WET PREP 2019-11-11 18:59:00 Lizette Causey Meth odkym CHLAMYDIA GONORRHOEAE AND TRICHOMONAS PANEL 2019-11-11 18:59:00 Lizette Causey URINE CULTURE 2019-11-11 18:34:00 Lizette Causey odkym URINALYSIS SCREEN AND MICROSCOPY, WITH REFLEX TO CULTURE 202 18:12:00 Lizette Causey HCG QUALITATIVE, URINE SCREEN 2019-11-11 18:12:00 Lizette Causey COVID-19 QUALITATIVE PCR 2019-11-08 09:09:[address] HEAD WO CONTRAST 2019-11-02 05:37:10 Heron Arthur HC COMPLETE BLD COUNT W/AUTO DIFF 2019-11-02 05:09:00 Jamshid Arthur COMPREHENSIVE METABOLIC PANEL 2019-11-02 05:09:00 Heron Arthur LACTIC ACID LEVEL, SEPSIS - NOW AND REPEAT 2X EVERY 3 HOURS 2019-11-02 05:09:00 Heron Arthur ESTIMATED GFR 2019-11-02 05:09:00 Heron Arthur ECG ED PRELIMINARY INTERPRETATION 2019-10-26 03:44:16 Nate Robbins HC COMPLETE BLD COUNT W/AUTO DIFF 2019-10-26 01:50:00 Nate Robbins COMPREHENSIVE METABOLIC PANEL 2019-10-26 01:50:00 Donita Robbins CREATINE KINASE, TOTAL (CPK) 2019-10-26 01:50:00 Henry Robbins TROPONIN 2019-10-26 01:50:00 Len Robbins B NATRIURETIC PEPTIDE 2019-10-26 01:50:00 Len Robbins HCG QUALITATIVE, SERUM SCREEN 2019-10-26 01:50:00 Donita Robbins ESTIMATED GFR 2019-10-26 01:50:00 Len Robbins XR CHEST 1 VW PORTABLE 2019-10-26 01:41:28 Len Robbins ECG 12-LEAD 2019-10-26 01:24:56 Len Robbins COVID-19 QUALITATIVE PCR 2019-10-24 09:35:00 Heron Garcia Scientologist COVID-19 QUALITATIVE PCR 2019-10-17 09:33:00 Shalini Wilkerson John Scientologist COVID-19 QUALITATIVE PCR 2019-09-19 11:34:[address] RENAL STONE PROTOCOL 2019-08-17 00:18:08 Tarik Rivera Rakesh rehman Scientologist URINE CULTURE 2019-08-15 00:22:00 Jayesh Segovia URINALYSIS SCREEN AND MICROSCOPY, WITH REFLEX TO CULTURE 202 00:08:00 Jayesh Segovia HCG QUALITATIVE, URINE SCREEN 2019-08-15 00:08:[address] HEAD WO CONTRAST 2019-08-02 14:52:52 SheppardJanuary connors Aman stonate Scientologist XR CHEST 2 VW 2019-05-12 13:57:52 Russel Martin on Scientologist ECG ED PRELIMINARY INTERPRETATION 2019-05-12 12:34:28 Breonna Martin seist HC COMPLETE BLD COUNT W/AUTO DIFF 2019-05-12 12:04:00 Breonna Martin se COMPREHENSIVE METABOLIC PANEL 2019-05-12 12:04:00 Russel Martin TROPONIN 2019-05-12 12:04:00 Russel Martin on Scientologist B NATRIURETIC PEPTIDE 2019-05-12 12:04:00 Russel Martin Scientologist ESTIMATED GFR 2019-05-12 12:04:00 Russel Martin on Scientologist ECG 12-LEAD 2019-05-12 12:02:10 Russel Martin on Scientologist URINE CULTURE 2019-01-05 00:08:00 Zulema Richards Met hodist URINALYSIS SCREEN AND MICROSCOPY, WITH REFLEX TO CULTURE 201 12-06-09 00:08:00 Zulema Richards Scientologist HC COMPLETE BLD COUNT W/AUTO DIFF 2019-01-05 00:02:00 Chad Richards COMPREHENSIVE METABOLIC PANEL 2019-01-05 00:02:00 Zulema Richards HCG QUALITATIVE, SERUM SCREEN 2019-01-05 00:02:00 Zulema Richards TROPONIN 2019-01-05 00:02:00 Zulema Richards Met hodist ESTIMATED GFR 2019-01-05 00:02:00 Zulema Richards Met hodist MAGNESIUM LEVEL 2019-01-05 00:02:00 Zulema Richards Met hodist ECG 12-LEAD 2019-01-04 23:56:00 Zulema Richards Met hodist ECG ED PRELIMINARY INTERPRETATION 2019-01-04 23:54:28 Chad Richards LIPID PANEL 2019-01-02 12:00:00 Tiara Finn URINE DRUGS OF ABUSE SCREEN 2019-01-02 09:00:00 Heron Garcia TROPONIN, I-STAT 2019-01-02 02:03:00 Heron Garcia Me thodist TROPONIN 2019-01-01 22:04:00 Heron Garcia Met hodist MRI CERVICAL SPINE WO CONTRAST 2019-01-01 19:35:44 Heron Garcia MRI BRAIN WO CONTRAST 2019-01-01 19:17:11 Heron Garcia on Scientologist URINE CULTURE 2019-01-01 18:59:00 Heron Garcia Met hodist GRAM STAIN 2019-01-01 18:59:00 Heron Garcia Met hodist URINALYSIS SCREEN AND MICROSCOPY, WITH REFLEX TO CULTURE 201 12-06-05 18:16:00 Heron Garcia [place] CRITICAL CARE, E/M 30-74 MINUTES 2019-01-01 18:04:51 Mariana Garcia ECG ED PRELIMINARY INTERPRETATION 2019-01-01 18:04:[address] ANGIOGRAM NECK W WO CONTRAST 2019-01-01 17:52:[address] ANGIOGRAM HEAD W WO CONTRAST 2019-01-01 17:52:37 Kenneth Garcia Scientologist POC GLUCOSE 2019-01-01 17:45:00 Heron Garcia Met hodist ECG 12-LEAD 2019-01-01 17:37:03 Heron Garcia Met hodist CT STROKE BRAIN WO CONTRAST 2019-01-01 17:27:23 Heron Gracia Scientologist HC COMPLETE BLD COUNT W/AUTO DIFF 2019-01-01 17:26:00 Jamshid Garcia PROTHROMBIN TIME WITH INR 2019-01-01 17:26:00 Heron Garcia Scientologist PARTIAL THROMBOPLASTIN TIME (PTT) 2019-01-01 17:26:00 Jamshid Garcia TYPE AND SCREEN 2019-01-01 17:26:00 Heron Garcia Met hodist BASIC METABOLIC PANEL 2019-01-01 17:26:00 Heron Garcia on Scientologist HEPATIC FUNCTION PANEL 2019-01-01 17:26:00 Heron Garcia Scientologist TROPONIN 2019-01-01 17:26:00 Heron Garcia Met hodist B NATRIURETIC PEPTIDE 2019-01-01 17:26:00 Heron Garcia on Scientologist HCG QUALITATIVE, SERUM SCREEN 2019-01-01 17:26:00 Heron Garcia ESTIMATED GFR 2019-01-01 17:26:00 Heron Garcia Met hodist CREATINE KINASE, TOTAL (CPK) 2019-01-01 17:26:00 Heron Garcia Scientologist URINE CULTURE 2018-12-31 21:57:00 Zulema Richards Met hodist HCG QUALITATIVE, URINE SCREEN 2018-12-31 21:57:00 Zulema Ricahrds URINALYSIS SCREEN AND MICROSCOPY, WITH REFLEX TO CULTURE 201 12-06-04 21:57:00 Zulema Richards X-ray of chest, two views 2017-12-02 00:00:00 LEAH URBINA [facility] Plan of Care Planned Activity Planned Date Details Comments Source Future Scheduled Test 2019-10-28 00:00:00 INFLUENZA VACCINE [code = INFLUENZA VACCINE] John Allen Future Scheduled Test 2001-01-24 00:00:00 Screening for megan gnant neoplasm of cervix (procedure) [code = 376932608] John Stevens t Encounters Start Date/Time End Date/Time Encounter Type Admission Type Attendi [facility] Care Department Encounter ID Source 2019-12-25 00:00:00 2019-12-25 00:00:00 Emergency PADILLA LIZETTE [place] [id number] [place] Scientologist 2019-12-21 00:00:00 2019-12-21 00:00:00 Emergency CAMDEN PERALTA [place] [address] [id number] [place] Scientologist 2019-12-16 00:00:00 2019-12-16 00:00:00 Emergency JAIMIE ROJO [place] [address] [id number] [place] Scientologist 2019-12-07 00:00:00 2019-12-08 00:00:00 Emergency HERON ARTHUR [place] [address] [id number] [place] Scientologist 2019-11-11 00:00:00 2019-11-11 00:00:00 Emergency LIZETTE CAUSEY [place] [address] [id number] [place] Scientologist 2019-11-08 00:00:00 2019-11-08 00:00:00 Emergency HERON GARCIA [place] [address] [id number] [place] Scientologist 2019-11-02 00:00:00 2019-11-02 00:00:00 Emergency HERON ARTHUR [place] [address] [id number] [place] Scientologist 2019-10-26 00:00:00 2019-10-26 00:00:00 Emergency GRUPONate EIL-ASHLEY [place] [address] [id number] [place] Scientologist 2019-10-24 00:00:00 2019-10-24 00:00:00 Outpatient HERON GARCIA [facility] [id number] [place] Scientologist 2019-10-17 00:00:00 2019-10-17 00:00:00 Outpatient SHALINI WILKERSON [facility] [id number] [place] Scientologist 2019-09-19 00:00:00 2019-09-19 00:00:00 Emergency HERON GARCIA [place] [address] [id number] [place] Scientologist 2019-08-29 00:00:00 2019-08-29 00:00:00 Outpatient JAZZ POWERS [facility] [id number] [place] Scientologist 2019-08-16 00:00:00 2019-08-17 00:00:00 Emergency TARIK RIVERA [place] [id number] [place] Scientologist 2019-08-15 00:00:00 2019-08-15 00:00:00 Emergency Nate ROBBINS [place] [address] [id number] [place] Scientologist 2019-08-02 00:00:00 2019-08-02 00:00:00 Emergency MIGUELTARIK [place] [address] [id number] [place] Scientologist 2019-07-25 00:00:00 2019-07-25 00:00:00 Emergency DE MANDELYOUSUF MCLEAN [place] [address] [id number] [place] Scientologist 2019-05-12 00:00:00 2019-05-12 00:00:00 Emergency RUSSEL MARTIN [place] [id number] [place] Scientologist 2019-02-27 00:00:00 2019-02-27 00:00:00 Emergency DE YOUSUF MANDEL [place] [address] [id number] [place] Scientologist 2019-01-04 00:00:00 2019-01-05 00:00:00 Emergency RANJITH, ZULEMA [place] [address] [id number] [place] Scientologist 2019-01-01 00:00:00 2019-01-03 00:00:00 Inpatient COLBY CARVALHO [facility] [id number] [place] Scientologist 2018-12-31 00:00:00 2018-12-31 00:00:00 Emergency RANJITH, ZULEMA [place] [address] [id number] [place] Scientologist 2018-12-24 00:00:00 2018-12-24 00:00:00 Emergency MADONNA DIGNAJAZMÍN [place] [address] [id number] [place] Scientologist 2018-12-23 00:00:00 2018-12-24 00:00:00 Emergency CAMDEN PERALTA [place] [address] [id number] [place] Scientologist 2017-12-02 11:04:00 2017-12-02 13:45:00 Departed Emergency Room 1 JENA SESAY [facility] [id number] [facility] Results Test Description Test Time Test Comments Results Result Comments Source Troponin 2019-12-21 22:51:39 Test Item Troponin (test code = 66625-7) <0.006 0-0.04 In patients suspected of having a myocardial infarction, along with all other appropriate clinical measures and actions including ECG and other diagnostics as appropriate, measure Ultra TnI at 0 hrs and at 3 hrs.Myocardial infarction VERY LIKELYThe 0 hr TnI level is > 0.10 ng/mL Steve cardial infarction LIKELYThe 0 hr TnI level is > 0.04 ng/mL and 3 hr level is increased or decreased by at least 0.020 ng/mL Myocardi al infarction VERY UNLIKELYBoth the 0 hr and 3 hr TnI levels <= 0.04 ng/mL(within normal limits) OR 0 hr is > 0.04 ng/mL and 3 hr is increased OR decreased by less than 0.020 ng/mL [facility] Angiogram Chest W Contrast Abdomen W Contrast Pelvis W [id number] 21:10:46 Interface, Radiology Results 12/21/2019 9:13 PM CDTEXAMINATION: CT ANGIOGRAM CHEST ABDOMEN PELVIS W AND OR WITHOUT CONTRASTCLINICAL HISTORY: cp radiate from back. r o dissectionTECHNIQUE: Multiple CT angiographic images of the chest, abdomen, and pelvis were obtained during intravenous administration of contrast. Multiple computerized reformatted images as well as 3-D volume rendered images were also obtained. Precontrast images of the chest, abdomen, and pelvis were obtained. CT imaging was performed with iterative reconstruction techniques and/or automated exposure control to reduce radiation dose. COMPARISON: CT abdomen/pelvis 08/16/2019IMPRESSION:Chest:*The heart is normal in size. No significant pericardial effusion is seen. The main pulmonary trunk is within normal limits in caliber. No central pulmonary embolus is identified.*No thoracic lymp hadenopathy is seen.*Mild dependent atelectasis is seen in both lower lobes. No suspicious pulmonary nodule or consolidation is identified. The central airways are patent.*No pleural effusion or pneumothorax is seen.Abdomen:* A few scattere d hypodensities in the liver measure up to 1.4 cm, grossly unchanged and suggest maria guadalupe of cysts.*The gallbladder, spleen, pancreas, and right adrenal gland are unr emarkable.*A 1.1 cm nodule is seen in the left adrenal gland, consistent with an adenoma.*The kidneys are normal in size. No nephrolithiasis or hydronephrosis is identified. No suspicious renal mass is seen.*No mesenteric or retroperitoneal lymphadenopathy is seen.*No significant free fluid or air is identified.*No bow el wall thickening or obstruction is seen. The appendix is normal.Pelvis:* The u rinary bladder appears normal.*A left adnexal structure measures up to 1.8 cm, s uggestive of an ovarian cyst. The uterus and right adnexa are grossly unremarkab le.Musculoskeletal:*No acute or aggressive osseous lesion is seen.CTA: No eviden ce of aortic aneurysm or dissection is seen.Aortic measurements as follows: Mid ascending aorta 3.4 cm, mid aortic arch 2.4 cm, mid descending aorta 2.3 cm, at celiac artery 2.2 cm, at bifurcation 1.5 cm.There is common origin of the innomi maryann artery and left common carotid artery. The great vessels of the neck are pa tent.The celiac artery and its distal branches are patent. The SMA and its dista l branches are patent. 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 A single left renal artery is pa tent.The FROY and its distal branches are patent.Bilateral iliac and partially vi sualized femoral arteries are widely patent. SUMMARY:1.No evidence of aortic ane urysm or dissection.2.No acute intrathoracic, intra-abdominal, or pelvic abnorma lity.[facility]-[id number] MethodistComprehensive metabolic [id number] 20:21:20* Test Item Value Reference Range Interpretation Comments Sodium (test code = 2951-2) 138 135- 150 mEq/L Potassium (test code = 2823-3) 4.0 3.5- 5.0 mEq/L Chloride (test code = 2075-0) 102 98- 112 mEq/L CO2 (test code = 2027-9) 26 mmol/L 24-31 Anion gap (test code = 79080-8) 10@ANIO 7- 15 mEq/L BUN (test code = 3094-0) 16 mg/dL 7-18 Creatinine (test code = 2160-0) 0.50 mg/dL 0.5-0.9 Glucose (test code = 2345-7) 88 mg/dL 65-100 Calcium (test code = 72663-4) 9.5 mg/dL 8.3-10.2 Protein (test code = 2885-2) 7.0 g/dL 6.3-8.3 Albumin (test code = 1751-7) 3.8 g/dL 3.5-5 A/G ratio (test code = 1759-0) 1.2 0.7-3.8 Alkaline phosphatase (test code = 6768-6) 56 U/L 0-104 AST (test code = 1920-8) 26 U/L 10-35 ALT (test code = 1742-6) 11 U/L 5-50 Total bilirubin (test code = 1974-) 0.8 mg/dL 0.2-1.2 [place] MethodistMagnesium eemmd5214-92-76 20:21:20* Test Item Value Reference Range Interpretation Comments Magnesium (test code = 61692-5) 2.00 mg/dL 1.6-2.6 [place] MethodistPhosphorus ycjnr4914-01-56 20:21:20* Test Item Value Reference Range Interpretation Comments Phosphorus (test code = 2777-1) 3.6 mg/dL 2.4-4.5 [place] MethodistEstimated [id number] 20:21:20* Test Item Value Reference Range Interpretation Comments Estimated GFR (test code = 5488) >=90 mL/min/1.73 m2 Catergory Units InterpretationG1 >=90 Normal or highG2 60-89 Mildly dpaydbuscS0a 45-59 Mildly to moderately cwxpfqtceK8i 30-44 Moderately to severely decreasedG4 15-29 Severely decreasedG5 <15 Kidney failureThe eGFR was calculated using the Chronic Kidney Disease Epidemiology Collaboration (CKD-EPI) equation. Interpretation is based on recommendations of the National Kidney Foundation-Kidney Disease Outcomes Quality Initiative (NKF-KDOQI) published in 2014. [place] MethodistB natriuretic gskhpwk2854-44-58 20:12:54* Test Item Value Reference Range Interpretation Comments BNP (test code = 69472-7) 23 pg/mL 0-100 [place] MethodistUrinalysis screen and microscopy, with reflex to culture 2019-12-21 20:12:03* Test Item Value Reference Range Interpretation Comments Specimen site (test code = 2331960) Clean catch Color, UA (test code = 5778-6) Yellow Appearance, UA (test code = 5767-9) Clear Specific gravity, UA (test code = 5811-5) 1.017 1.001-1.035 pH, UA (test code = 5803-2) 6.0 5.0-8.5 Protein, UA (test code = 46274-0) Negative Negative Glucose, UA (test code = 41010-0) Negative Negative Ketones, UA (test code = 2514-8) Negative Negative Bilirubin, UA (test code = 5770-3) Negative Negative Blood, UA (test code = 5794-3) Negative Negative Nitrite, UA (test code = 5802-4) Negative Negative Urobilinogen, UA (test code = 71291-9) Negative <2.0 Leukocyte esterase, UA (test code = 5799-2) Negative Negative Epithelial cells, UA (test code = 5787-7) Many /HPF WBC, UA (test code = 5821-4) 1 0- 5 /HPF RBC, UA (test code = 05463-0) 1 0- 5 /HPF Bacteria, UA (test code = 73865-8) None seen None seen Yeast, UA (test code = 23664-3) None seen Yeast with pseudohyphae, UA (test code = 07373-9) None seen [place] MethodistCBC with platelet and jatyinbaeqru3089-77-11 20:11:36* Test Item Value Reference Range Interpretation Comments WBC (test code = 17864-0) 5.8 4.2- 11.0 k/uL RBC (test code = 79904-2) 3.87 m/uL 4.04-5.86 L HGB (test code = 718-7) 11.5 g/dL 11.5-15.3 HCT (test code = 4544-3) 34.0 % 34-45 MCV (test code = 787-2) 87.9 fL 80-98 MCH (test code = 785-6) 29.7 pg 27-34 MCHC (test code = 786-4) 33.8 g/dL 31.5-36.5 RDW - SD (test code = 17236-5) 43.8 fL 37-51 MPV (test code = 95098-0) 13.3 fL 7.4-10.4 H Platelet count (test code = 54610-1) 121 150- 400 k/uL L Nucleated RBC (test code = 29742-9) 0.00 /100 WBC Neutrophils (test code = 80213-1) 58.7 % 36-66 Lymphocytes (test code = 31168-5) 32.8 % 24-44 Monocytes (test code = 00157-1) 5.5 % 0-6 Eosinophils (test code = 88201-4) 2.2 % 0-6 Basophils (test code = 47377-7) 0.3 % 0-1.2 Immature granulocytes (test code = 54460-3) 0.5 % 0-1 Lab Interpretation (test code = 56076-0) Abnormal John SullivanistSmear lgdxjq8710-72-88 20:11:27* Test Item Value Reference Range Interpretation Comments Platelet slide review (test code = 72359-8) Agustin slt decr Enlarged platelets (test code = 71398-1) 1+ John MethodistUrine atwltpk7729-35-60 20:10:13* Test Item Value Reference Range Interpretation Comments Urine culture (test code = 7722344) SEE COMMENT Bacteriuria screen negative. John AllenhCG qualitative, urine yuycxa7034-51-81 19:58:29* Test Item Value Reference Range Interpretation Comments hCG qualitative, urine (test code = 2106-3) Negative Negative The manufacturers stated sensitivity of HcG test for serum is >/= 10 mIU/ml and urine is >/= 20mIU/ml. Lopez DerekG 12 uoei4513-51-02 19:49:58* Test Item Value Reference Range Interpretation Comments Ventricular rate (test code = 253) 68 Atrial rate (test code = 255) 68 TX interval (test code = 266) 154 QRSD interval (test code = 260) 88 QT interval (test code = 264) 416 QTC interval (test code = 265) 442 P axis 1 (test code = 267) 68 QRS axis 1 (test code = 268) 65 T wave axis (test code = 270) 55 EKG impression (test code = 273) Normal sinus rhythm w ith sinus arrhythmia- Normal ECG-In automated comparison with ECG of 26-OCT-2019 01:24,-No significant change was found- [place] [facility]ologistV[facility] [place] Interpretation - Not an [id number] 19:16:19Camden Peralta DO 12/23/2019 9:07 [facility] Preliminary Interpretation - Not an OrderPerformed by: Camden Peralta DOAuthorized by: Camden Peralta DO ECG reviewed by ED Physician in the absence of a safety deposit clerk: yes Interpretation: Interpretation: normal Rate: ECG rate: 68 ECG rate assessment: normal Rhythm: Rhythm: sinus rhythm Ectopy: Ectopy: none QRS: QRS axis: Normal QRS intervals: NormalConduction: Conduction: normal ST segments: ST segments: NormalT waves: T waves: normal John AllenT4, ocuo0691-77-76 02:11:02* Test Item Value Reference Range Interpretation Comments T4, free (test code = 3024-7) 1.19 ng/dL 0.9-1.7 John AllenThyroid stimulating qlwbmal4671-35-26 02:11:02* Test Item Value Reference Range Interpretation Comments TSH (test code = 3016-3) 2.21 0.27- 4.20 uIU/mL Lopez ScientologistBasic metabolic vvwfq7338-87-73 02:00:19* Test Item Value Reference Range Interpretation Comments Sodium (test code = 2951-2) 140 135- 148 mEq/L Potassium (test code = 2823-3) 3.3 3.5- 5.0 mEq/L L Chloride (test code = 5-0) 102 98- 112 mEq/L CO2 (test code = 2027-) 28 24- 31 mEq/L Anion gap (test code = 48218-7) 10@ANIO 7- 15 mEq/L BUN (test code = 3094-0) 10 mg/dL 6-20 Creatinine (test code = 2160-0) 0.70 mg/dL 0.5-0.9 Glucose (test code = 2345-7) 90 mg/dL 65-99 Calcium (test code = 21615-4) 9.9 mg/dL 8.3-10.2 Lab Interpretation (test code = 93476-7) Abnormal [place] [facility] Wo Znboukjc2101-87-58 00:56:46Hm Interface, Radiology Results 12/08/2019 12:59 AM CDTEXAMINATION: MRI LUMBAR SPINE WO CONTRASTCLINICAL HISTORY: hx of central stenosis now parath esiaCOMPARISON: None.FINDINGS:Lowermost functional disc space is assumed to be L5-S1.Mild retrolisthesis at L5-S1.No suspicious focal bone marrow lesionsVisual ized spinal cord is normal in appearance.Disc desiccation at L4-5 and L5-S1.L1-2 : No central canal or foraminal narrowing.L2-3: No central canal or foraminal na rrowing.L3-4: Mild facet arthropathy. No central canal or foraminal narrowing.L4 -5: Bilateral facet arthropathy. No central canal or foraminal narrowing.L5-S1: Bilateral facet arthropathy. Mild retrolisthesis. No central canal or foraminal narrowing. IMPRESSION:Multilevel facet arthropathy without central canal or fora angel luis narrowing.[facility]-WPHYRRSHousjersey city medical center MethodNew Mexico Behavioral Health Institute at Las VegasI Thoracic Spine Wo Contrast 2019-12-08 00:39:44Hm Interface, Radiology Results 12/08/2019 12:42 AM CDTEXAMINATION: MRI THORACIC SPINE WO CONTRASTCLINICAL HISTORY: hx of central stenosis now parathesiaCOMPARISON: None.Findings:Thoracic spine alignment is within normal limits.No suspicious focal bone marrow lesions.Visualized spinal cord is normal in size and signal intensity.No significant degenerative disc disease.Mild multilevel facet arthropathy.No central canal or foraminal narrowing in thoracic spine.IMPRESSION:No central canal or foraminal narrowing in the thoracic spine.[facility] Scientologist MRI Cervical Spine Wo [id number] 00:36:17Hm Interface, Radiology Results 12/08/2019 12:39 AM CDTEXAMINATION: MRI CERVICAL SPINE WO CONTRASTCLINICAL HISTORY: hx of central stenosis parathesiaCOMPARISON: January 01, 2019FINDINGS:Reversal cervical lordosis.Multilevel disc space narrowing and endplate degenerative changes worst at C4-5 and C5-6.No suspicious focal bone marrow lesions.Visualized spinal cord is normal in appearance.C2-3: No canal or foraminal narrowing.C3-4: No canal or foraminal narrowing.C4-5: Posterior osteophyte disc complex asymmetric to the right causes mild effacement of subarachnoid space. No foraminal narrowing.C5-C6: Posterior osteophyte disc complex asymmetric to the right causes stable narrowing of the canal. There is flattening of the right ventral surface of the cord. Facet and uncal arthrosis causes stable left foraminal narrowing.C6-C7: Posterior osteophyte disc complex asymmetric to the left causes stable narrowing of the canal. Facet and uncal a rthrosis causes stable left foraminal narrowing.C7-T1: No central canal or polina inal narrowing.IMPRESSION:Stable multilevel degenerative changes worst at C5-6.[facility] HOSPITALOctavio MethodistMRI Brain Wo Hlbtbxut2248-13-35 00:32:28Hm Interface, Radiology Results 12/08/2019 12:35 AM CDTEXAMINATION: MRI BRAIN WO CONTRASTCLINICAL HISTORY: parathesiaCOMPARISON: November 02, 2019Fin dings:No intracranial hemorrhage, acute ischemia, extra-axial fluid collections or parenchymal mass lesions. No hydrocephalus. No suspicious focal bone marrow l esions.IMPRESSION:No acute intracranial abnormalities or mass lesions.[facility]ITALR [place] MethodistIonized kuqiqwk6989-37-69 23:57:11* Test Item Value Reference Range Interpretation Comments pH (test code = 2753-2) 7.36 Ionized calcium (test code = 1994-0) 1.18 mmol/L 1.11-1.32 John SullivanistChlamydia gonorrhoeae and trichomonas exyeu1794-15-14 19:57:13 * Test Item Value Reference Range Interpretation Comments Chlamydia trachomatis by PCR (test code = 06004-9) Neg ative for Chlamydia trachomatis. Specimen Information Specimen Source: CervicalSpecimen Site: Cervical swab Neisseria gonorrhoeae by PCR (test code = 38525-5) Neg ative for Neisseria gonorrhoeae. Trichomonas vaginalis by PCR (test code = 33963-5) Neg ative for Trichomonas vaginalis. [facility] KingwoodWet [id number] 19:28:58Wet prep resultNo Trichomonas vaginalis or budding yeast seenNo Clue cells seen Comment: Specimen InformationSpecimen Source: VaginalSpecimen Site: Not otherwise specified [facility] MethodistCOVID-19 qualitative PCR 2019-11-08 20:07:15* Test Item Value Reference Range Interpretation Comments Interpretation (test code = 7800531) Positive results are indicative of active infection with 2019-nCoV but do not rule out bacterial infection or coinfection with other viruses. The agent detected may not be the definite cause of disease. COVID-19 qualitative PCR result (test code = 13146-1) Detected Not-Detected A COVID-19 qualitative PCR (test code = 7070) See link below for P DF Lab Report Lab Interpretation (test code = 64246-5) Abnormal [facility] KingwoodCT Head Wo Wromnnls5694-27-37 05:48:06Hm Interface, Radiology Results 11/02/2019 5:51 AM CDTEXAMINATION: CT HEAD WO CONTRASTCLINICAL HISTORY: headacheCOMPARISON: 08/02/2019TECHNIQUE: Noncontrast enhanced images of the brain were obtained from the skull base to the vertex. Both soft tissue and bone reconstruction algorithms were performed.CT imaging was performed with iterative reconstruction technique and/or automated exposure control to reduce radiation dose.IMPRESSION:No intracranial hemorrhage, mass, mass effect, or herniation.No acute osseous abnormalities. Mild mucosal thicke cali of left maxillary sinus. Minimal air-fluid levels seen of left sphenoid sin us.Summary:No acute intracranial abnormalities.[facility]-[id number] Scientologist Lactic acid level, SEPSIS - Now and repeat 2x every 3 lvcgd0271-22-06 05:31:40* Test Item Value Reference Range Interpretation Comments Lactic acid (test code = 87358-4) 0.9 mmol/L 0.5-2.2 [place] MethodisthCG qualitative, serum ezghoy1140-46-41 02:57:02* Test Item Value Reference Range Interpretation Comments hCG qualitative, serum (test code = 2118-8) Negative The manufacturers stated sensitivity of HcG test for serum is >/= 10 mIU/ml and urine is >/= 20mIU/ml. [place] MethodistCreatine kinase, total (CPK)2019-10-26 02:43:37* Test Item Value Reference Range Interpretation Comments Creatine kinase (test code = 2157-6) 63 U/L 26-192 [place] MethodistXR Chest 1 Vw Lymaxilb7749-98-41 01:42:44Hm Interface, Radiology Results 10/26/2019 1:45 AM CDTCLINICAL HISTORY: 39 years Female cpCOMPARISON: 2 views of the chest from 05/12/2019.IMPRESSI ON:Lines/Tubes: None.Lungs/Pleura: The lungs are clear. No pleural effusion or pneumothorax.Heart/Mediastinum: The cardiomediastinal silhouette is normal.Bones : No acute osseous abnormality.[facility]-[id number] Methodalta vista regional hospitalCT Renal Stone Mgftraet7120-56-46 00:23:38Hm Interface, Radiology Results 08/17/2019 12:26 AM CDTEXAMINATION: CT RENAL STONE PROTOCOLCLINICAL HISTORY:39 years Female flank painTECHNIQUE: Multiple axial images of the abdomen and pelvis were obtained without intravenous administration of iodinated contrast. Sagittal and coronal computerized reformatted images were also obtained. The lack of intravenous contrast reduces the sensitivity of detecting solid organ disease. CT imaging was performed with iterative reconstruction techniques and/or automated exposure control to reduce radiation dose. COMPARISON: CT abdomen/pelvis 04/10/2018IMPRESSION:LUNG BASES:The lung bases are free of acute disease.ABDOMEN:Liver: Scattered hepatic cysts are seen measuring up to 1.4 cm in the tip of the liver. Additional scattered subcentimeter hypodensities in the liver too small to fully characterize, but likely represent cysts. Gallbladder/Biliary: The gallbladder is mostly contracted. There is no evidence of intra or extrahepatic biliary ductal dilatation.Spleen: The spleen is not enlarged.Pancreas: The pancreas is unremarkable.Adrenal Glands: A 1.2 cm nodule in the left adrenal gland is suggestive of an adenoma. The right adrenal gland is unremarkable.Kidneys: The kidneys are unremarkable. No mass, hydronephrosis or calculi.Vascular: The abdominal aorta is nonaneurysmal.Nodes: No enlarged retroperitoneal or mesenteric lymphadenopathy.Bowel: No bowel obstruction or i nflammatory changes. The appendix is normal.Peritoneum/retroperitoneum: No ascit es or fluid collections.PELVIS:The urinary bladder is partially decompressed cau sing mild wall thickening. The uterus and adnexa are grossly unremarkable. MUSCU LOSKELETAL: No suspicious osseous lesions. SUMMARY:1.No nephrolithiasis or hydro nephrosis.2.No acute intra-abdominal or pelvic abnormality.3.Other findings as a loyd.[facility]-[id number] MethodistXR Chest 2 [id number] 13:59:35Hm Interface, Radiology Results Incoming - 05/12/2019 2:02 PM CSTEXAMINATION: XR CHEST 2 VWCLINICAL HISTORY: chest painXR CHEST 2 VW images are submittedCOM PARISON: 12/24/2018FINDINGS:The cardiac silhouette is normal in size. The pulmon daily vasculature is within normal limits. The lung zones are clear. There is no p leural effusion or pneumothorax.IMPRESSION:1. There is no acute cardiopulmonary disease.ST-[id number] MethodistGram tmhcz6224-12-94 02:49:13* Test Item Value Reference Range Interpretation Comments Gram stain result (test code = 664-3) No WBC's or organisms seen. Specimen InformationSpecimen Source: UrineSpecimen Site: Clean catch [facility] drugs of abuse mulhmf1147-57-27 12:38:51* Test Item Value Reference Range Interpretation Comments Amphetamine screen, urine (test code = 3349-8) Negative Barbiturate screen, urine (test code = 3377-9) Negative Benzodiazepine screen, urine (test code = 3390-2) Negative Cocaine screen, urine (test code = 3397-7) Negative Methadone metabolite (EDDP), urine (test code = 34918-3) Negative Opiates screen, urine (test code = 3879-4) Negative Oxycodone screen, urine (test code = 54783-2) Negative Phencyclidine screen, urine (test code = 3936-2) Negative Cannabinoid screen, urine (test code = 3427-2) Negative Drug screen minimum concentration of detectabilityAmphetamines 1000 ng/mLBarbiturates 200 ng/mLBenzodiazepines 300 ng/mLCocaine 300 ng/mLMethadone 300 ng/mLOpiates 300 ng/mLOxycodone 300 ng/mLPhencyclidine 25 ng/mLCannabinoids 50 ng/mLTricyclics 1000 ng/mLResults are from screening tests and should only be used for medical evaluation. Drug testing for legal purposes requires definitive (or confirmatory) testing methods, which are available upon request. Contact the laboratory if definitive testing is required. John MethodkymLipid dkmpc5470-54-84 12:36:26* Test Item Value Reference Range Interpretation Comments Cholesterol (test code = 2093-3) 164 mg/dL 0-199 Triglycerides (test code = 2571-8) 75 mg/dL 0-149 HDL cholesterol (test code = 2085-9) 64 mg/dL 40-9999 LDL cholesterol (test code = 2089-1) 111 mg/dL 0-99 H Result obtained by direct LDL measurement Lipid panel interpretation (test code = 95407-8) See below Total Cholesterol (mg/dL) LDL Cholesterol (mg/dL) <200 Desirable <100 Optimal 200-239 Borderline-high 100-129 Near or above optimal >=240 High 130-159 Borderline- high 160-189 High >=190 Very highHDL Cholesterol (mg/dL) Triglycerides (mg/dL) <40 Low <150 Normal >=60 High 150-199 Borderline-high 200-499 High >=500 Very high Risk Catergories that modify LDL goals.Risk Catergories LDL goal (mg/dL)CHD and CHD risk equivalent <100 (10-year risk >20%)Multiple (2+) risk factors <130 (10-year risk =<20%)0-1 risk factors <160 (<10-year risk) Defining levels of lipids in metabolic syndromeTriglycerides >=150 mg/dLHDL Cholesterol Men <40 mg/dL Women <50 mg/dL Non-HDL cholesterol is a second target for therapy in personswith high triglycerides (>=200 mg/dL) Lab Interpretation (test code = 86497-8) Abnormal John Simeon M-Ubza8834-62Gllv3033-47-58 03:08:18* Test Item Value Reference Range Interpretation Comments Troponin, I-Stat (test code = 2359) 0.00 ng/mL 0-0.08 0.09 - 1.49 ng/ml May indicate increased risk of acute coronary syndrome. >=1.5 ng/ml Consistent with acute myocardial infarction. The diagnostic value of a single normal or non-diagnostic result is questionable. Serial samples at 2-6 hour intervalsare required to rule out acute myocardial injury. [place] MethodistType and pezkkl3335-86-48 18:46:00* Test Item Value Reference Range Interpretation Comments ABO grouping (test code = 883-9) O Rh type (test code = 86720-3) POS Antibody screen (gel) (test code = 890-4) NEG [place] MethodistCRITICAL [id number] 18:04:51Heron Garcia MD 01/01/2019 7:02 PMCritical CarePerformed by: Heron Garcia, MDAuthorized by: Heron Garcia MD Critical care provider statement: Critical care time (minutes): 33 Critical care time was exclusive of: Separately billable procedures and treating other patients and teaching time Critical care was necessary to treat or prevent imminent or life-threatening deterioration of the following conditions: OPTOMETRIC TECHNOLOGIST failure or compromise (Code CVA ) Critical care was time spent personally by me on the following activities: Ordering and performing treatments and interventions, ordering and review of laboratory st udies, ordering and review of radiographic studies, pulse oximetry, re-evaluatio n of patient's condition, development of treatment plan with patient or surrogat e, discussions with consultants, discussions with primary provider, evaluation o f patient's response to treatment, interpretation of cardiac output measurements and obtaining history from patient or surrogateSicily Island MethodistCTA Head W Wo [id number] 18:04:19Hm Interface, Radiology Results Incoming - 01/01/2019 6:07 PM CDTEXAMINATION: CT ANGIOGRAM HEAD W WO CONTRASTCLINICAL HISTORY: cvaCOMPARISON: None.TECHNIQUE: CTA imaging was performed with and without administration of IV contrast, using iterative reconstruction technique and/or automated exposure control to reduce radiation dose. 3-D reconstructions are processed off-line.FINDINGS:RIGHT:ICA: Normal, no proximal flow-limiting stenosis, occlusion, dissection, aneurysms, pseudoaneurysms or vascular malformations.JOSEE: Normal, no proximal flow-limiting stenosis, occlusion, dissection, aneurysms, pseudoaneurysms or vascular malformations.MCA: Normal, no proximal flow-limiting stenosis, occlusion, dissection, aneurysms, pseudoaneurysms or vascular malformations.UNIT LEADER: Normal, no proximal flow-limiting stenosis, occlusion, dissection, aneurysms, pseudoaneurysms or vascular malformations.VERTEBRAL ARTERY: Normal, no proximal flow-limiting stenosis, occ lusion, dissection, aneurysms, pseudoaneurysms or vascular malformations.LEFT:IC A: Normal, no proximal flow-limiting stenosis, occlusion, dissection, aneurysms, pseudoaneurysms or vascular malformations.JOSEE: Normal, no proximal flow-limiting stenosis, occlusion, dissection, aneurysms, pseudoaneurysms or vascular malfor mations.MCA: Normal, no proximal flow-limiting stenosis, occlusion, dissection, aneurysms, pseudoaneurysms or vascular malformations.UNIT LEADER: Normal, no proximal fl ow-limiting stenosis, occlusion, dissection, aneurysms, pseudoaneurysms or vascu lar malformations.VERTEBRAL ARTERY: Normal, no proximal flow-limiting stenosis, occlusion, dissection, aneurysms, pseudoaneurysms or vascular malformations.BASI LAR ARTERY: Normal, no proximal flow-limiting stenosis, occlusion, dissection, a neurysms, pseudoaneurysms or vascular malformations.OTHER: NoneIMPRESSION:1. No evidence of proximal intracranial arterial flow-limiting stenosis, occlusion, an eurysms or high flow vascular malformationsBIBB MEDICAL [id number] MethodistCTA Neck W Wo [id number] 18:02:35 Interface, Radiology Results 01/01/2019 6:05 PM CDTEXAMINATION: CT ANGIOGRAM NECK W WO CONTRASTCLINICAL HISTORY: cvaCOMPARISON: None.TECHNIQUE: CTA imaging was performed with administration of contrast, using iterative reconstruction technique and/or automated exposure control to reduce radiation dose. 3-D reconstructions are processed off-line.FINDINGS:AORTIC ARCH: Left-sided aortic arch with normal branching pattern. Limited views show no evident dissection, aneurysms, penetrating ulcer or coarctation. No evidence of proximal occlusion or flow- limiting stenosis at the ostium of the supraaortic arteries.RIGHT:COMMON CAROTID ARTERY: Normal, no proximal flow-limiting stenosis, occlusion, dissection, aneurysms, pseudoaneurysms or vascular malformations.CAROTID BIFURCATION AND ICA: Normal, no proximal flow-limiting stenosis, occlusion, dissection, aneu rysms, pseudoaneurysms or vascular malformations.EXTERNAL CAROTID ARTERY: Normal , no proximal flow-limiting stenosis, occlusion, dissection, aneurysms, pseudoan eurysms or vascular malformations.VERTEBRAL ARTERY: Normal, no proximal flow-marx iting stenosis, occlusion, dissection, aneurysms, pseudoaneurysms or vascular ma lformations.LEFT:COMMON CAROTID ARTERY: Normal, no proximal flow-limiting stenos is, occlusion, dissection, aneurysms, pseudoaneurysms or vascular malformations. CAROTID BIFURCATION AND ICA: Normal, no proximal flow-limiting stenosis, occlusi on, dissection, aneurysms, pseudoaneurysms or vascular malformations.EXTERNAL CA ROTID ARTERY: Normal, no proximal flow-limiting stenosis, occlusion, dissection, aneurysms, pseudoaneurysms or vascular malformations.VERTEBRAL ARTERY: Normal, no proximal flow-limiting stenosis, occlusion, dissection, aneurysms, pseudoaneu rysms or vascular malformations.OTHER: NoneIMPRESSION:No evidence of proximal fl ow-limiting stenosis, occlusion, dissection, aneurysms, pseudoaneurysms or vascu lar malformations.[facility]-[id number] [facility] uummsbd4591-84-47 17:54:31 * Test Item Value Reference Range Interpretation Comments POC glucose (test code = 90920-6) 70 mg/dL 65-100 Meter ID: [id number]: Katherin Shah [place] MethodistHepatic function cskrd6235-35-97 17:53:55* Test Item Value Reference Range Interpretation Comments Albumin (test code = 1751-7) 3.8 g/dL 3.5-5 Total bilirubin (test code = 1974-2) 0.9 mg/dL 0.2-1.2 Bilirubin direct (test code = 1967-7) <0.2 0-0.4 Alkaline phosphatase (test code = 6768-6) 61 U/L 0-104 Protein (test code = 2885-2) 7.1 g/dL 6.3-8.3 ALT (test code = 1742-6) 11 U/L 5-50 AST (test code = 1920-8) 17 U/L 10-35 [place] MethodistProthrombin time with [id number] 17:46:36* Test Item Value Reference Range Interpretation Comments Prothrombin time (test code = 5902-2) 13.6 11.5- 14.5 sec INR (test code = 32803-8) 1.07 Fo r patients on anticoagulant therapy, reference ranges below:Indication: INR ValueTreatment of Venous Thrombosis, 2.0-3.0pulmonary emboli, or prophylaxisof a venous thrombosis, or systemic emboli.High dose, high risk patients 3.0-4.5with mechanical valves.NOTE: INR values over 3.0 are sometimes associated withgastrointestinal hemorrhage, especially values over 4.0. [place] MethodistPartial thromboplastin time, jvebeyjry5393-72-36 17:46:36* Test Item Value Reference Range Interpretation Comments PTT (test code = 3173-2) 32.0 23.0- 36.0 sec P TT therapeutic range for unfractionated heparin is61.0-112.0 seconds which corresponds to Anti-Xa0.3-0.7 U/ml. [place] MethodistCT Stroke Brain Wo Fqykinza4355-11-61 17:29:36Hm Interface, Radiology Results Incoming - 01/01/2019 5:32 PM CDTEXAMINATION: CT STROKE BRAIN WO CONTRASTCLINICAL HISTORY: cvaCOMPARISON: CT head 06/07/2018TECHNIQUE: Noncontrast head CT performed using radiation dose reduction techniques. Technical factors are evaluated and adjusted to ensure appropriate moderation of exposure. Automated dose management technology is applied to adjust radiation exposure while achieving a diagnostic quality image. FINDINGS:No evidence of acute intracranial hemorrhage, mass, mass effect, midline shift, or acute infa rct. Ventricles and sulci are normal in appearance for patient's age. Basal cis terns are clear. Calvarium is intact.Orbits are normal in appearance. No signifi cant paranasal sinus mucosal thickening. Mastoid air cells are clear.IMPRESSION: 1. No CT evidence of acute intracranial abnormality.Findings were discussed with and acknowledged by HERON GARCIA at 01/01/2019 5:29 PM who verbalized underst anding. [facility]-[id number] [facility] 2 [id number] 12:31:00 [place] [address] Patient Name: PADMINI VORA MR #: [id number] : Age/Sex: 37/F Req #: [id number] Adm Physician: Ordered by: LEAH URBINA NP Report #: [id number] Location: ER Room/Bed: Procedure: [id number] DX/CHEST 2 VIEWS Exam Date: 0 12/02/17 Exam Time: 1213 REPORT STATUS: Signed EXAMINATION: CHEST 2 VIEWS INDICATION: Left upper posterior chest pa in. COMPARISON: None FINDINGS: TUBES and LINES: None. L UNGS: Lungs are well inflated. Lungs are clear. There is no evidence of pn eumonia or pulmonary edema. PLEURA: No pleural effusion or pneumothorax. HEART AND MEDIASTINUM: The cardiomediastinal silhouette is unremarkable. BONES AND SOFT TISSUES: No acute osseous lesion. Soft tissues are unrema rkable. UPPER ABDOMEN: No free air under the diaphragm. IMPRESSION: No acute thoracic abnormality. Signed by: Dr. Ortiz Murphy MD on 12/02/2017 12:33 PM Dictated By: ORTIZ MURPHY MD 1233 Transcribed By: TISHA on 12/02/17 1233 COPY TO: LEAH URBINA LIBRARY CLERK Creatine Kinase [id number] 12:23:00* Test Item Value Reference Range Interpretation Comments Creatine Kinase MB (test code = 99990-8) 0.90 0-5.0 [facility] HospitalTroponin [id number] 12:23:00* Test Item Value Reference Range Interpretation Comments Troponin I (test code = UKN1736) 0.002 0-0.300 [facility]ufkinodium Frzhi4255-64-16 12:16:00* Test Item Value Reference Range Interpretation Comments Sodium Level (test code = 2951-2) 139 136-145 [facility] HospitalPotassium Nslvh5919-06-45 12:16:00* Test Item Value Reference Range Interpretation Comments Potassium Level (test code = 2823-3) 4.0 3.5-5.1 [facility] HospitalChloride Msski3476-62-66 12:16:00* Test Item Value Reference Range Interpretation Comments Chloride Level (test code = 2075-0) 107 98-107 [facility] HospitalCarbon Dioxide Mawjf9351-39-35 12:16:00* Test Item Value Reference Range Interpretation Comments Carbon Dioxide Level (test code = 2028-9) 22 22-29 [facility] HospitalAnion [id number] 12:16:00* Test Item Value Reference Range Interpretation Comments Anion Gap (test code = 50515-1) 14.0 8-16 [facility] HospitalBlood Urea Shqvkmdt3827-75-39 12:16:00* Test Item Value Reference Range Interpretation Comments Blood Urea Nitrogen (test code = 3094-0) 13 7-26 [facility] HospitalCreatinine2018-09-06 12:16:00* Test Item Value Reference Range Interpretation Comments Creatinine (test code = 2160-0) 0.66 0.57-1.11 [facility] HospitalBUN/Creatinine Zzgfs2248-96-21 12:16:00* Test Item Value Reference Range Interpretation Comments BUN/Creatinine Ratio (test code = 3097-3) 20 6-25 [facility] HospitalEstimat Glomerular Filtration Rate 2017-12-02 12:16:00* Test Item Value Reference Range Interpretation Comments Estimat Glomerular Filtration Rate (test code = 74249-0) 60- >60 Ranges were taken from the National Kidney Disease Education Program and the [facility] [employer] literature.Reference ranges:60 or greater: Cfrqrs09-11 ( for 3 consecutive months): Chronic kidney disease 15 or less: Kidney failureCHI Covenant Health PlainviewGlucose Cboxa8164-64-17 12:16:00* Test Item Value Reference Range Interpretation Comments Glucose Level (test code = UZH2568) 92 74-118 [facility] HospitalCalcium Bzzbx3225-83-60 12:16:00* Test Item Value Reference Range Interpretation Comments Calcium Level (test code = 37622-0) 8.8 8.4-10.2 [facility] HospitalMagnesium Qodwq5769-35-02 12:16:00* Test Item Value Reference Range Interpretation Comments Magnesium Level (test code = 40162-7) 2.0 1.3-2.1 [facility] HospitalTotal Qzrqbawwd7101-19-74 12:16:00* Test Item Value Reference Range Interpretation Comments Total Bilirubin (test code = 1975-2) 0.4 0.2-1.2 [facility] HospitalAspartate Amino Transf (AST/SGOT) 2017-12-02 12:16:00* Test Item Value Reference Range Interpretation Comments Aspartate Amino Transf (AST/SGOT) (test code = Aspartate Amino Transf (AST/SGOT)) 14 5-34 [facility] HospitalAlanine Aminotransferase (ALT/SGPT) 2017-12-02 12:16:00* Test Item Value Reference Range Interpretation Comments Alanine Aminotransferase (ALT/SGPT) (test code = 1742-6) 11 0-55 [facility] Axafrau8451-33-35 12:16:00* Test Item Value Reference Range Interpretation Comments Total Protein (test code = 2885-2) 6.7 6.5-8.1 [facility] HospitalAlbumin2018-09-06 12:16:00* Test Item Value Reference Range Interpretation Comments Albumin (test code = 1751-7) 3.7 3.5-5.0 [facility] HospitalGlobulin2018-09-06 12:16:00* Test Item Value Reference Range Interpretation Comments Globulin (test code = 80080-5) 3.0 2.3-3.5 [facility] HospitalAlbumin/Globulin Usqxg1834-28-51 12:16:00 * Test Item Value Reference Range Interpretation Comments Albumin/Globulin Ratio (test code = 1759-0) 1.2 0.8-2.0 [facility] HospitalAlkaline Qaipmqwjkne0521-03-60 12:16:00* Test Item Value Reference Range Interpretation Comments Alkaline Phosphatase (test code = 6768-6) 50 40-150 [facility] HospitalCreatine Myaplw5173-30-38 12:16:00* Test Item Value Reference Range Interpretation Comments Creatine Kinase (test code = 2157-6) 58 29-168 [facility] HospitalHuman Chorionic Gonadotropin, Qual 2017-12-02 12:04:00* Test Item Value Reference Range Interpretation Comments Human Chorionic Gonadotropin, Qual (test code = 2118-8) NEGATIVE NEGATIVE [facility] HospitalWhite Blood Rtbki0124-23-36 12:02:00* Test Item Value Reference Range Interpretation Comments White Blood Count (test code = 6690-2) 5.58 4.8-10.8 [facility] HospitalRed Blood Euscq7791-65-36 12:02:00* Test Item Value Reference Range Interpretation Comments Red Blood Count (test code = 789-8) 4.14 3.6-5.1 [facility] HospitalHemoglobin2018-09-06 12:02:00* Test Item Value Reference Range Interpretation Comments Hemoglobin (test code = 65706-5) 12.9 12.0-16.0 [facility] HospitalHematocrit2018-09-06 12:02:00* Test Item Value Reference Range Interpretation Comments Hematocrit (test code = 4544-3) 37.6 34.2-44.1 [facility] HospitalMean Corpuscular Wlowqk3578-53-62 12:02:00* Test Item Value Reference Range Interpretation Comments Mean Corpuscular Volume (test code = 787-2) 90.8 81-99 [facility] HospitalMean Corpuscular Bwhohpmzfe0018-11-28 12:02:00* Test Item Value Reference Range Interpretation Comments Mean Corpuscular Hemoglobin (test code = 785-6) 31.2 28-32 [facility] HospitalMean Corpuscular Hemoglobin Concent 2017-12-02 12:02:00* Test Item Value Reference Range Interpretation Comments Mean Corpuscular Hemoglobin Concent (test code = 786-4) 34.3 31-35 [facility] HospitalRed Cell Distribution Cmomj6730-28-43 12:02:00* Test Item Value Reference Range Interpretation Comments Red Cell Distribution Width (test code = 29440-6) 13.4 11.7 -14.4 [facility] HospitalPlatelet Bqgyg2563-82-41 12:02:00* Test Item Value Reference Range Interpretation Comments Platelet Count (test code = 777-3) 153 140-360 [facility] HospitalNeutrophils (%) (Auto)2017-12-02 12:02:00 * Test Item Value Reference Range Interpretation Comments Neutrophils (%) (Auto) (test code = 91685-3) 71.2 38.7-80.0 [facility] HospitalLymphocytes (%) (Auto)2017-12-02 12:02:00 * Test Item Value Reference Range Interpretation Comments Lymphocytes (%) (Auto) (test code = 736-9) 19.4 18.0-39.1 [facility] HospitalMonocytes (%) (Auto)2017-12-02 12:02:00* Test Item Value Reference Range Interpretation Comments Monocytes (%) (Auto) (test code = 5905-5) 8.2 4.4-11.3 [facility] HospitalEosinophils (%) (Auto)2017-12-02 12:02:00 * Test Item Value Reference Range Interpretation Comments Eosinophils (%) (Auto) (test code = 713-8) 0.2 0.0-6.0 [facility] HospitalBasophils (%) (Auto)2017-12-02 12:02:00* Test Item Value Reference Range Interpretation Comments Basophils (%) (Auto) (test code = 706-2) 0.5 0.0-1.0 [facility] HospitalIM GRANULOCYTES %2017-12-02 12:02:00* Test Item Value Reference Range Interpretation Comments IM GRANULOCYTES % (test code = IM GRANULOCYTES %) 0.5 0.0- 1.0 [facility] HospitalNeutrophils # (Auto)2017-12-02 12:02:00* Test Item Value Reference Range Interpretation Comments Neutrophils # (Auto) (test code = 751-8) 4.0 2.1-6.9 [facility] HospitalLymphocytes # (Auto)2017-12-02 12:02:00* Test Item Value Reference Range Interpretation Comments Lymphocytes # (Auto) (test code = 79571-3) 1.1 1.0-3.2 [facility] HospitalMonocytes # (Auto)2017-12-02 12:02:00* Test Item Value Reference Range Interpretation Comments Monocytes # (Auto) (test code = 742-7) 0.5 0.2-0.8 [facility] HospitalEosinophils # (Auto)2017-12-02 12:02:00* Test Item Value Reference Range Interpretation Comments Eosinophils # (Auto) (test code = 711-2) 0.0 0.0-0.4 [facility] HospitalBasophils # (Auto)2017-12-02 12:02:00* Test Item Value Reference Range Interpretation Comments Basophils # (Auto) (test code = 704-7) 0.0 0.0-0.1 [facility] HospitalAbsolute Immature Granulocyte (auto 2017-12-02 12:02:00* Test Item Value Reference Range Interpretation Comments Absolute Immature Granulocyte (auto (veronika t code = Absolute Immature Granulocyte (auto) 0.03 0-0.1 [facility]
== END 2019-12-29 00:33 | disposition home or self-care (01) ==
LOC: ER 23:50
DX: R23.3 Spontaneous ecchymoses (principal); I10 Essential (primary) hypertension; E03.9 Hypothyroidism, unspecified; F41.9 Anxiety disorder, unspecified
CPT/HCPCS: 36415; 80048; 81001; 81025; 85025; 99283